=== PATIENT | female | born 1930 | race Caucasian/White ===

== ENCOUNTER 2017-10-09 10:26 | Inpatient (IN) | payer MEDICARE ==
[~2017-10-09] VITALS: Ht 165.1 cm; Wt 50.0 kg
[~2017-10-09 10:26] MED LIST: ACET325 PO; CALC600T34 PO; CELE200C PO; DOCU1CAP39 PO; LACT20SO4 PO; VITA400C28 PO
[2017-10-09 10:51] VITALS: BP 140/65; PULSE 65; RESP 18; O2SAT 99
--- NOTE | 2017-10-09 10:59 | PD ---
HPI Chief Complaint: Fall Time Seen by Provider: 10:56 (Patricia Santiago) Time Seen by Provider: 10:56 (Molina Garza MD) Travel History International Travel<30 days: No Contact w/Intl Traveler<30days: No Traveled to known affect area: No (Patricia Santiago) International Travel<30 days: No Contact w/Intl Traveler<30days: No (Molina Garza MD) History of Present Illness HPI Patient is 86 years old. Yesterday she fell landing on the left side of the body and hitting the left hip causing severe pain. The patient laid on the floor overnight and her private residence alone. Eventually her neighbors heard her in the morning and EMS was activated. Morphine 6 mg helped with the pain. She reports hyperinversion the left foot which led to the fall. There is no loss of consciousness or head trauma. Pain is now constant severe and worse active/passive range of motion. (Molina Garza MD) PFSH Past Medical History Anxiety: Yes Depression: Yes Cancer: No Cardiovascular Problems: Yes High Cholesterol: Yes Diminished Hearing: No Endocrine: No Genitourinary: Yes Musculoskeletal: Yes (OSTEOPOROSIS) Neurologic: Yes Psychiatric: Yes Reproductive: No Respiratory: No Shingles: Yes Ectopic : Yes (Patricia Santiago) Past Surgical History Appendectomy: Yes Eye Surgery: Yes (BILATERAL LENS IMPLANTS 2007) Hysterectomy: Yes Tonsillectomy: Yes Other Surgery: Yes (REPAIR OF BROKEN NOSE) (Patricia Santiago) Social History Alcohol Use: Yes (occ - wine and beer) Tobacco Use: No Substance Use: No (Patricia Santiago) Allergies-Medications (Allergen,Severity, Reaction): Coded Allergies: No Known Allergies (Verified , 01/16/15) Reported Meds & Prescriptions Reported Meds & Active Scripts Active Reported Calcium 600+D 200 (Calcium Carbonate-Vitamin D) 600-200 Mg-Unit Tab 1 Tab PO DAILY Preservision Areds 2 Softgel (Vit C/E/Zn/Coppr/Lutein/Zeaxan) 250-200-40 Capsule 1 Cap PO BID Ibuprofen 200 Mg Cap 200-400 Mg PO Q6H PRN Probiotic Daily (Probiotic Product) Unknown Strength Cap 1 Cap PO DAILY [place] Opth Drops (Ketotifen Opth Drops) 0.025% Drops 1 Drop EACH EYE Q6H PRN Aspirin Adult Low Strength (Aspirin) 81 Mg Tabdr 81 Mg PO DAILY Effexor XR 24 HR (Venlafaxine HCl) 150 Mg Cap 150 Mg PO DAILY Fluticasone Nasal [place] 50 Mcg/Act Naspr 1 [place] EACH NARE DAILY 50 mcg/spray Zocor (Simvastatin) 10 Mg Tab 10 Mg PO HS Citalopram (Citalopram Hydrobromide) 20 Mg Tab 20 Mg PO DAILY (Molina Garza MD) Review of Systems Except as stated in HPI: all other systems reviewed are Neg General / Constitutional: No: Fever (Molina Garza MD) Physical Exam Narrative GENERAL: 86-year-old female pleasant well-nourished well-developed moderate distress secondary to pain SKIN: Warm and dry. HEAD: Atraumatic. Normocephalic. EYES: Pupils equal and round. No scleral icterus. No injection or drainage. ENT: No nasal bleeding or discharge. Mucous membranes pink and moist. NECK: Trachea midline. No JVD. CARDIOVASCULAR: Regular rate and rhythm. RESPIRATORY: No accessory muscle use. Clear to auscultation. Breath sounds equal bilaterally. GASTROINTESTINAL: Abdomen soft, non-tender, nondistended. Hepatic and splenic margins not palpable. MUSCULOSKELETAL: Left lower extremity is shortened and externally rotated. There is 2+ dorsalis pedis pulse bilaterally. There is moderate tenderness to palpation overlying the left greater trochanter. The left upper extremity in the region of the DRUJ is deformed with concern for radius fracture. There is a radial artery pulse bilaterally. There is market ecchymosis from the middle portion of the humerus to the hand on the left side. Active range of motion of the left knee is preserved. NEUROLOGICAL: Awake and alert. No obvious cranial nerve deficits. Motor grossly within normal limits. Five out of 5 muscle strength in the arms and legs. Normal speech. PSYCHIATRIC: Appropriate mood and affect; insight and judgment normal. (Molina Garza MD) Data Data Last Documented VS Vital Signs Date Time Temp Pulse Resp B/P (MAP) Pulse Ox O2 Delivery O2 Flow Rate FiO2 10/09/17 13:34 111 20 166/72 (103) 100 Room Air (Molina Garza MD) Orders Orders Humerus (Min 2vws) (10/09/17 ) Electrocardiogram (10/09/17 11:05) Complete Blood Count With Diff (10/09/17 11:05) Prothrombin Time / Inr (Pt) (10/09/17 11:05) Act Partial Throm Time (Ptt) (10/09/17 11:05) Urinalysis - C+S If Indicated (10/09/17 11:05) Chest, Single Ap (10/09/17 11:05) Femur (Ap & Lat/2vws) (10/09/17 11:05) Hip, Uni(Ap&Lat) W Ap Pelvis (10/09/17 11:05) Iv Access Insert/Monitor (10/09/17 11:05) Oximetry (10/09/17 11:05) Ecg Monitoring (10/09/17 11:05) Morphine Inj (Morphine Inj) (10/09/17 11:15) Ondansetron Inj (Zofran Inj) (10/09/17 11:15) Sodium Chloride 0.9% Flush (Ns Flush) (10/09/17 11:15) Diet Npo (10/10/17 Lunch) Wrist, Complete (Pvp6nzt) (10/09/17 ) Creatine Kinase (Cpk) (10/09/17 11:05) CKMB (10/09/17 11:46) CKMB% (10/09/17 11:46) Comprehensive Metabolic Panel (10/09/17 13:39) Admit Order (Ed Use Only) (10/09/17 ) Vital Signs (Adult) Q4H (10/09/17 13:42) Activity Bed Rest (10/09/17 13:42) (Molina Graza MD) Labs Laboratory Tests Test 10/09/17 11:46 White Blood Count 14.0 TH/MM3 Red Blood Count 3.90 MIL/MM3 Hemoglobin 11.8 GM/DL Hematocrit 36.2 % Mean Corpuscular Volume 92.8 FL Mean Corpuscular Hemoglobin 30.3 PG Mean Corpuscular Hemoglobin Concent 32.6 % Red Cell Distribution Width 13.9 % Platelet Count 227 TH/MM3 Mean Platelet Volume 8.6 FL Neutrophils (%) (Auto) 85.4 % Lymphocytes (%) (Auto) 7.4 % Monocytes (%) (Auto) 7.1 % Eosinophils (%) (Auto) 0.0 % Basophils (%) (Auto) 0.1 % Neutrophils # (Auto) 11.9 TH/MM3 Lymphocytes # (Auto) 1.0 TH/MM3 Monocytes # (Auto) 1.0 TH/MM3 Eosinophils # (Auto) 0.0 TH/MM3 Basophils # (Auto) 0.0 TH/MM3 CBC Comment DIFF FINAL Differential Comment Prothrombin Time 10.8 SEC Prothromb Time International Ratio 1.1 RATIO Activated Partial Thromboplast Time 23.7 SEC Blood Urea Nitrogen 30 MG/DL Creatinine 0.85 MG/DL Random Glucose 134 MG/DL Total Protein 7.3 GM/DL Albumin 3.8 GM/DL Calcium Level 9.1 MG/DL Alkaline Phosphatase 89 U/L Aspartate Amino Transf (AST/SGOT) 65 U/L Alanine Aminotransferase (ALT/SGPT) 29 U/L Total Bilirubin 0.6 MG/DL Sodium Level 139 MEQ/L Potassium Level 4.6 MEQ/L Chloride Level 106 MEQ/L Carbon Dioxide Level 16.3 MEQ/L Anion Gap 17 MEQ/L Estimat Glomerular Filtration Rate 64 ML/MIN Total Creatine Kinase 1778 U/L Creatine Kinase MB 69.5 NG/ML Creatine Kinase MB % 3.9 % (Molina Garza MD) [facility] Medical Decision Making Medical Screen Exam Complete: Yes Emergency Medical Condition: Yes Medical Record Reviewed: Yes Differential Diagnosis Hip fracture, distal radius fracture, contusion, abrasion Narrative Course CBC & BMP Diagram 10/09/17 11:46 Total Protein 7.3, Albumin 3.8, Calcium Level 9.1, Alkaline Phosphatase 89, Aspartate Amino Transf (AST/SGOT) 65 H, Alanine Aminotransferase (ALT/SGPT) 29, Total Bilirubin 0.6 CK is 1778 Last Impressions Hip and Pelvis X-Ray 10/09/17 1105 Signed Impressions: Service Date/Time: Monday, October 09, 2017 12:39 - CONCLUSION: Displaced comminuted fracture through the trochanteric region of the proximal left femur. Juan R Arana MD Femur X-Ray 10/09/17 1105 Signed Impressions: Service Date/Time: Monday, October 09, 2017 12:39 - CONCLUSION: Left intertrochanteric femoral neck fracture. Bharat Han MD Chest X-Ray 10/09/17 1105 Signed Impressions: Service Date/Time: Monday, October 09, 2017 12:15 - CONCLUSION: 1. New impacted fracture through the neck of the proximal left humerus. 2. Stable chronic interstitial lung changes compare to 2015. No new or acute pulmonary infiltrates. Juan R Arana MD Wrist X-Ray 10/09/17 0000 Signed Impressions: Service Date/Time: Monday, October 09, 2017 12:22 - CONCLUSION: Colles' fracture of the left wrist, age undetermined. Correlate with physical and clinical exam. Juan R Arana MD Humerus X-Ray 10/09/17 0000 Signed Impressions: Service Date/Time: Monday, October 09, 2017 12:17 - CONCLUSION: Nondisplaced impacted fracture through the neck of the proximal left humerus. Juan R Arana MD Distal radius fracture reduced at bedside. Sling placed for proximal humerus fracture. Brown's traction for the left proximal humerus fracture. Discussed with Dr. Fragoso for the hospitalist service. 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 An ambu bag and suction was immediately available at bedside. The patient was monitored by the nurse. Oxygen saturation , heart rate and blood pressure were monitored. Procedural sedation was acheived using propofol . The patient was observed until awake and alert. Procedural Sedation time in attendance was 20 minutes. Traction countertraction technique employed to reduce distal radius fracture with excellent anatomic alignment. Patient with pulses at the radial artery 2+ [id number]. (Molina Garza MD) Diagnosis Primary Impression: Hip fracture Qualified Codes: S72.002A - Fracture of unspecified part of neck of left femur , initial encounter for closed fracture Additional Impressions: Fall Qualified Codes: W19.XXXA - Unspecified fall, initial encounter Contusion Qualified Codes: S40.022A - Contusion of left upper arm, initial encounter Humerus fracture Distal radius fracture Qualified Codes: S52.532A - Colles' fracture of left radius, initial encounter for closed fracture Admitting Information Admitting Physician Requests: Admit (Molina Garza MD) Patricia Santiago October 09, 2017 10:59 Molina Garza MD October 09, 2017 11:10
[2017-10-09] MEDS ORDERED: MORPHINE SULFATE 4 MG/ML INJ IV PUSH ONE (11:15)
[2017-10-09] MEDS ORDERED: SODIUM CHLORIDE 0.9% FLUSH 10 ML FLUSH IVF PRN (11:15)
[2017-10-09] MEDS ORDERED: ONDANSETRON HCL 4 MG/2 ML VIAL IVP ONE (11:15)
[2017-10-09] MEDS ORDERED: ASPI81TA16 PO (11:43)
[2017-10-09] MEDS ORDERED: EFFE150C PO (11:43)
[2017-10-09] MEDS ORDERED: FLUT50SP EACH NARE (11:43)
[2017-10-09] MEDS ORDERED: ZOCO10TA PO (11:43)
[2017-10-09] MEDS ORDERED: MULT10CA PO (11:43)
[2017-10-09] MEDS ORDERED: PROBCAP28 PO (11:43)
[2017-10-09] MEDS ORDERED: CITA20TA4 PO (11:43)
[2017-10-09] MEDS ORDERED: CALCTAB19 PO (11:43)
[2017-10-09] MEDS ORDERED: IBUP200C PO (11:43)
[2017-10-09] MEDS ORDERED: ALAW0.02 EACH EYE (11:43)
[2017-10-09 11:59] LABS: AUTOMATED NEUTROPHIL # 11.9 TH/MM3 (1.8-7.7); BASOPHIL % 0.1 % (0.0-2.0); HEMATOCRIT 36.2 % (35.0-46.0); HEMOGLOBIN 11.8 GM/DL (11.6-15.3); LYMPH % 7.4 % (9.0-44.0); MEAN CELL VOLUME 92.8 FL (80.0-100.0); MEAN CORPUSCULAR HEMOGLOBIN 30.3 PG (27.0-34.0); MEAN CORPUSCULAR HGB CONC 32.6 % (32.0-36.0); MEAN PLATELET VOLUME 8.6 FL (7.0-11.0); MONO % 7.1 % (0.0-8.0); NEUT % 85.4 % (16.0-70.0); PLATELET COUNT 227 TH/MM3 (150-450); RED CELL DISTRIBUTION WIDTH 13.9 % (11.6-17.2)
[2017-10-09 12:08] LABS: INTERNATIONAL NORMALIZED RATIO 1.1 RATIO; PROTHROMBIN TIME - PATIENT 10.8 SEC (9.8-11.6)
--- NOTE | 2017-10-09 12:55 | RADRPT ---
EXAM DATE/TIME: 10/09/2017 12:17 [facility] COMPARISON: No previous studies available for comparison. INDICATIONS : Fell last night, pain left shoulder, left wrist, left hip, unable to move due to pain MEDICAL HISTORY : unobtainable SURGICAL HISTORY : unobtainable ENCOUNTER: Initial ACUITY: 1 day PAIN SCORE: 10/10 LOCATION: Left humerus FINDINGS: There is a nondisplaced impacted fracture through the neck of the proximal left humerus. Humeral head remains aligned with the glenoid fossa. No definite joint dislocation is seen. The mid and distal sh aft of the humerus appears to be grossly intact. CONCLUSION: Nondisplaced impacted fracture through the neck of the proximal left humerus. Juan R Arana MD on October 09, 2017 at 12:53 Board Certified Radiologist. This report was verified electronically.
--- NOTE | 2017-10-09 12:57 | RADRPT ---
EXAM DATE/TIME: 10/09/2017 12:15 [facility] COMPARISON: CHEST SINGLE AP, January 16, 2015, 14:03. INDICATIONS : Pain left chest and shoulder, fell last night MEDICAL HISTORY : unobtainable SURGICAL HISTORY : unobtainable ENCOUNTER: Initial ACUITY: 1 day PAIN SCORE: 10/10 LOCATION: Bilateral chest FINDINGS: A single view of the chest demonstrates the lungs to be symmetrically aerated without evidence of mas s, infiltrate or effusion. There stable bilateral chronic interstitial lung disease without signific ant change compared to 2015. The cardiomediastinal contours are unremarkable. There is a new impacted fracture through the neck of the proximal left humerus. No joint dislocation. There is osteopenia th e bony structures. CONCLUSION: 1. New impacted fracture through the neck of the proximal left humerus. 2. Stable chronic interstitial lung changes compare to 2014. No new or acute pulmonary infiltrates. Juan R Arana MD on October 09, 2017 at 12:55 Board Certified Radiologist. This report was verified electronically.
--- NOTE | 2017-10-09 13:01 | RADRPT ---
EXAM DATE/TIME: 10/09/2017 12:22 [facility] COMPARISON: No previous studies available for comparison. INDICATIONS : Fell last night, pain left wrist MEDICAL HISTORY : unobtainable SURGICAL HISTORY : unobtainable ENCOUNTER: Initial ACUITY: 1 day PAIN SCORE: 10/10 LOCATION: Left wrist FINDINGS: There is osteopenia of the bony structures. There is deformity at the wrist with evidence of a Colles ' type fracture. However, this appears to be a possible old deformity. However I do have no prior valarie dies for comparison. There is some soft tissue swelling around the wrist. CONCLUSION: Colles' fracture of the left wrist, age undetermined. Correlate with physical and clinical exam. Juan R Arana MD on October 09, 2017 at 12:56 Board Certified Radiologist. This report was verified electronically.
--- NOTE | 2017-10-09 13:03 | RADRPT ---
EXAM DATE/TIME: 10/09/2017 12:39 [facility] COMPARISON: No previous studies available for comparison. INDICATIONS : Fell last night, pain left hip and femur MEDICAL HISTORY : unobtainable SURGICAL HISTORY : unobtainable ENCOUNTER: Initial ACUITY: 1 day PAIN SCORE: 10/10 LOCATION: Left hip FINDINGS: Examination of the left hip was performed with AP Pelvis. There is a displaced comminuted fracture th rough the trochanteric region of the proximal left femur. The femoral head remains within the acetabu lum. The bony structures of the pelvis are grossly intact. There is good alignment at the SI joints a nd pubic symphysis. CONCLUSION: Displaced comminuted fracture through the trochanteric region of the proximal left femur. Juan R Arana MD on October 09, 2017 at 13:00 Board Certified Radiologist. This report was verified electronically.
[2017-10-09 13:34] VITALS: BP 166/72; PULSE 111; RESP 20; O2SAT 100
[2017-10-09] MEDS: SODIUM CHLOR 0.9% 1000 ML INJ 1,000 ML IV SCH (13:42)
[2017-10-09] MEDS ORDERED: SODIUM CHLORIDE 0.9% FLUSH 10 ML FLUSH IV FLUSH PRN (13:45)
[2017-10-09] MEDS ORDERED: MAGNESIUM HYDROXIDE SUSP 30 ML CUP PO PRN (13:45)
[2017-10-09] MEDS ORDERED: ONDANSETRON HCL 4 MG/2 ML VIAL IVP PRN (13:45)
[2017-10-09] MEDS ORDERED: PROPOFOL 200 MG/20 ML AMP IV ONE (13:45)
[2017-10-09] MEDS ORDERED: NALOXONE HCL 0.4 MG/ML AMP IV PUSH PRN (13:45)
[2017-10-09] MEDS ORDERED: PROPOFOL 500 MG/50 ML INJ 50 ML ONE (13:45)
--- NOTE | 2017-10-09 13:46 | RADRPT ---
EXAM DATE/TIME: 10/09/2017 12:39 [facility] COMPARISON: No previous studies available for comparison. INDICATIONS : Fell last night, pain left hip and femur MEDICAL HISTORY : unobtainable SURGICAL HISTORY : unobtainable ENCOUNTER: Initial ACUITY: 1 day PAIN SCORE: 10/10 LOCATION: Left femur FINDINGS: Two view examination of the left femur demonstrates an intertrochanteric left femoral neck fracture w ith a separate fracture at the base of the lesser trochanter. The hip joint is normally aligned. The knee joint is aligned. CONCLUSION: Left intertrochanteric femoral neck fracture. Bharat Han MD on October 09, 2017 at 13:34 Board Certified Radiologist. This report was verified electronically.
--- NOTE | 2017-10-09 13:51 | HHI.HP ---
HPI Service [facility] Primary Care Physician Unknown Admission Diagnosis L Hip Fracture; L Distal Radius Fracture; Rhabdo Diagnoses: (1) Rhabdomyolysis Diagnosis: Principal (2) Fall Diagnosis: Principal (3) Hip fracture Diagnosis: Principal (4) Contusion Diagnosis: Principal Travel History International Travel<30 Days: No Contact w/Intl Traveler <30 Da: No Traveled to Known Affected Are: No History of Present Illness Mrs. Liz is an 86-year-old female. 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 After this point she had a fall and struck her left wrist and hit her left hip when she landed. She has fractures at her left radius and left femur. She was unable to have anybody come help her up and was down for some time. She is also dehydrated with rhabdomyolysis and she may have been on the floor for about 12 hours. No other complaints at this time. She did not strike her head. Review of Systems Constitutional: DENIES: Fever, Chills, Night Sweats Respiratory: DENIES: Cough, Wheezing, Shortness of breath Cardiovascular: DENIES: Chest pain, Palpitations, Syncope Musculoskeletal: COMPLAINS OF: Joint pain, Muscle aches, Stiffness, Joint Swelling Integumentary: DENIES: Abnormal pigmentation, Pruritus, Rash, Nail changes Hematologic/lymphatic: DENIES: Bruising, Lymphadenopathy Immunologic/allergic: DENIES: Eczema, Urticaria Neurologic: DENIES: Abnormal gait, Headache, Paresthesias Psychiatric: DENIES: Anxiety, Confusion, Hallucinations Except as stated in HPI: all other systems reviewed are Neg Past Family Social History Past Medical History Osteoporosis Depression Anxiety Hyperlipidemia Past Surgical History Appendectomy Bilateral lens implants Hysterectomy Tonsillectomy Repair of broken nose Reported Medications Reported Meds & Active Scripts Active Reported Calcium 600+D 200 (Calcium Carbonate-Vitamin D) 600-200 Mg-Unit Tab 1 Tab PO DAILY Preservision Areds 2 Softgel (Vit C/E/Zn/Coppr/Lutein/Zeaxan) 250-200-40 Capsule 1 Cap PO BID Ibuprofen 200 Mg Cap 200-400 Mg PO Q6H PRN Probiotic Daily (Probiotic Product) Unknown Strength Cap 1 Cap PO DAILY [place] Opth Drops (Ketotifen Opth Drops) 0.025% Drops 1 Drop EACH EYE Q6H PRN Aspirin Adult Low Strength (Aspirin) 81 Mg Tabdr 81 Mg PO DAILY Effexor XR 24 HR (Venlafaxine HCl) 150 Mg Cap 150 Mg PO DAILY Fluticasone Nasal [place] 50 Mcg/Act Naspr 1 [place] EACH NARE DAILY 50 mcg/spray Zocor (Simvastatin) 10 Mg Tab 10 Mg PO HS Citalopram (Citalopram Hydrobromide) 20 Mg Tab 20 Mg PO DAILY Allergies: Coded Allergies: No Known Allergies (Verified , 01/16/15) Family History Gallstones in siblings Social History Occasional alcohol. No smoking No illicit drug abuse Physical Exam Vital Signs Vital Signs Date Time Temp Pulse Resp B/P (MAP) Pulse Ox O2 Delivery O2 Flow Rate FiO2 10/09/17 13:34 111 20 166/72 (103) 100 Room Air 10/09/17 10:51 65 18 140/65 (90) 99 Physical Exam GENERAL: NAD, A&Ox3, thin/frail HEAD: Normocephalic. NECK: Supple, trachea midline. No lymphadenopathy. EYES: No scleral icterus. No injection or drainage. CARDIOVASCULAR: Regular rate and rhythm without murmurs, gallops, or rubs. RESPIRATORY: Breath sounds equal bilaterally. No accessory muscle use. GASTROINTESTINAL: Abdomen soft, non-tender, nondistended. MUSCULOSKELETAL: No cyanosis, or edema. Left wrist is bandaged. Decreased range of motion at left hip. SKIN: Warm and dry. NEURO: No focal neurological deficitis. Laboratory Laboratory Tests Test 10/09/17 11:46 White Blood Count 14.0 Red Blood Count 3.90 Hemoglobin 11.8 Hematocrit 36.2 Mean Corpuscular Volume 92.8 Mean Corpuscular Hemoglobin 30.3 Mean Corpuscular Hemoglobin Concent 32.6 Red Cell Distribution Width 13.9 Platelet Count 227 Mean Platelet Volume 8.6 Neutrophils (%) (Auto) 85.4 Lymphocytes (%) (Auto) 7.4 Monocytes (%) (Auto) 7.1 Eosinophils (%) (Auto) 0.0 Basophils (%) (Auto) 0.1 Neutrophils # (Auto) 11.9 Lymphocytes # (Auto) 1.0 Monocytes # (Auto) 1.0 Eosinophils # (Auto) 0.0 Basophils # (Auto) 0.0 CBC Comment DIFF FINAL Differential Comment Prothrombin Time 10.8 Prothromb Time International Ratio 1.1 Activated Partial Thromboplast Time 23.7 Total Creatine Kinase 1778 Result Diagram: 10/09/17 1146 Imaging Last Impressions Hip and Pelvis X-Ray 10/09/17 1105 Signed Impressions: Service Date/Time: Monday, October 09, 2017 12:39 - CONCLUSION: Displaced comminuted fracture through the trochanteric region of the proximal left femur. Juan R Arana MD Femur X-Ray 10/09/17 1105 Signed Impressions: Service Date/Time: Monday, October 09, 2017 12:39 - CONCLUSION: Left intertrochanteric femoral neck fracture. Bharat Han MD Chest X-Ray 10/09/17 1105 Signed Impressions: Service Date/Time: Monday, October 09, 2017 12:15 - CONCLUSION: 1. New impacted fracture through the neck of the proximal left humerus. 2. Stable chronic interstitial lung changes compare to 2015. No new or acute pulmonary infiltrates. Juan R Arana MD Wrist X-Ray 10/09/17 0000 Signed Impressions: Service Date/Time: Monday, October 09, 2017 12:22 - CONCLUSION: Colles' fracture of the left wrist, age undetermined. Correlate with physical and clinical exam. Juan R Arana MD Humerus X-Ray 10/09/17 0000 Signed Impressions: Service Date/Time: Monday, October 09, 2017 12:17 - CONCLUSION: Nondisplaced impacted fracture through the neck of the proximal left humerus. Juan R Arana MD Caprini VTE Risk Assessment Caprini VTE Risk Assessment: Mod/High Risk (score >= 2) Caprini Risk Assessment Model Point Value = 1 Point Value = 2 Point Value = 3 Point Value = 5 Age 41-60 Minor surgery BMI > 25 kg/m2 Swollen legs Varicose veins or History of unexplained or recurrent spontaneous Oral contraceptives or hormone replacement Sepsis (< 1 month) Serious lung disease, including pneumonia (< 1 month) Abnormal pulmonary function Acute myocardial infarction Congestive heart failure (< 1 month) History of inflammatory bowel disease Medical patient at bed rest Age 61-74 Arthroscopic surgery Major open surgery (> 45 min) Laparoscopic surgery (> 45 min) Malignancy Confined to bed (> 72 hours) Immobilizing plaster cast Central venous access Age >= 75 History of VTE Family history of VTE Factor V Leiden Prothrombin [id number] Lupus anticoagulant Anticardiolipin antibodies Elevated serum homocysteine Heparin-induced thrombocytopenia Other congenital or acquired thrombophilia Stroke (< 1 month) Elective arthroplasty Hip, pelvis, or leg fracture Acute spinal cord injury (< 1 month) Prophylaxis Regimen Total Risk Factor Score Risk Level Prophylaxis Regimen 0-1 Low Early ambulation 2 Moderate Order ONE of the following: *Sequential Compression Device (SCD) *Heparin 5000 units SQ BID 3-4 Higher Order ONE of the following medications: *Heparin 5000 units SQ TID *Enoxaparin/Lovenox 40 mg SQ daily (WT < 150 kg, CrCl > 30 mL/min) *Enoxaparin/Lovenox 30 mg SQ daily (WT < 150 kg, CrCl > 10-29 mL/min) *Enoxaparin/Lovenox 30 mg SQ BID (WT < 150 kg, CrCl > 30 mL/min) AND/OR *Sequential Compression Device (SCD) 5 or more Highest Order ONE of the following medications: *Heparin 5000 units SQ TID (Preferred with Epidurals) *Enoxaparin/Lovenox 40 mg SQ daily (WT < 150 kg, CrCl > 30 mL/min) *Enoxaparin/Lovenox 30 mg SQ daily (WT < 150 kg, CrCl > 10-29 mL/min) *Enoxaparin/Lovenox 30 mg SQ BID (WT < 150 kg, CrCl > 30 mL/min) AND *Sequential Compression Device (SCD) Assessment and Plan Problem List: (1) Fall ICD Code: W19.XXXA - Unspecified fall, initial encounter Status: Acute (2) Hip fracture ICD Code: S72.009A - Fracture of unspecified part of neck of unspecified femur , initial encounter for closed fracture Status: Acute (3) Contusion ICD Code: T14.8XXA - Other injury of unspecified body region, initial encounter Status: Acute (4) Rhabdomyolysis ICD Code: M62.82 - Rhabdomyolysis Assessment and Plan 86-year-old female admitted secondary to left femur and left radius fractures Left femur fracture Left radius fracture Chronic osteoporosis Orthopedic surgeon was consulted Bedrest for now N.p.o. after midnight Continue as needed pain treatments IV hydration Rhabdomyolysis Monitor renal function IV hydration Follow CK (renal function studies pending) Hyperlipidemia Continue present treatment Follow as an outpatient Depression Anxiety No change to baseline treatment DVT prophylaxis SCDs for now (renal function studies pending), consider anticoagulation after surgery Physician Certification 2 Midnight Certification Type: Admission for Inpatient Services Order for Inpatient Services The services are ordered in accordance with Medicare regulations or non- Medicare payer requirements, as applicable. In the case of services not specified as inpatient-only, they are appropriately provided as inpatient services in accordance with the 2-midnight benchmark. Estimated LOS (days): 4 days is the estimated time the patient will need to remain in the hospital, assuming treatment plan goals are met and no additional complications. Post-Hospital Plan: Home Problem Qualifiers (1) Fall: Qualified Codes: W19.XXXA - Unspecified fall, initial encounter (2) Hip fracture: Qualified Codes: S72.002A - Fracture of unspecified part of neck of left femur , initial encounter for closed fracture (3) Contusion: Qualified Codes: S40.022A - Contusion of left upper arm, initial encounter Molina Fragoso MD October 09, 2017 13:51
[2017-10-09 14:00] VITALS: O2SAT 99
[2017-10-09 14:22] VITALS: O2SAT 99
--- NOTE | 2017-10-09 14:55 | RADRPT ---
EXAM DATE/TIME: 10/09/2017 13:58 [facility] COMPARISON: No previous studies available for comparison. INDICATIONS : Post reduction. MEDICAL HISTORY : Unobtainable. SURGICAL HISTORY : Unobtainable. ENCOUNTER: Initial ACUITY: 1 day PAIN SCORE: 2/10 LOCATION: Left wrist. FINDINGS: Near anatomic alignment in fiberglass about the fractured distal radius. CONCLUSION: Near-anatomic alignment. Carlin Crain MD FACR on October 09, 2017 at 14:53 Board Certified Radiologist. This report was verified electronically.
[2017-10-09 15:15] LABS: ALT (GPT) 29 U/L (10-53)
[2017-10-09 15:18] LABS: ALKALINE PHOSPHATASE 89 U/L (45-117); TOTAL BILIRUBIN ADULT 0.6 MG/DL (0.2-1.0); TOTAL PROTEIN 7.3 GM/DL (6.4-8.2)
[2017-10-09 15:19] LABS: ALBUMIN 3.8 GM/DL (3.4-5.0); AST (GOT) 65 U/L (15-37); BICARBONATE 16.3 MEQ/L (21.0-32.0); BLOOD UREA NITROGEN 30 MG/DL (7-18); CALCIUM 9.1 MG/DL (8.5-10.1); CHLORIDE 106 MEQ/L (98-107); CREATININE 0.85 MG/DL (0.50-1.00); GLOMERULAR FILTRATION RATE 64 ML/MIN (>89); GLUCOSE,RANDOM 134 MG/DL (74-106); SODIUM (NA) 139 MEQ/L (136-145)
[2017-10-09] MEDS ORDERED: KETOTIFEN EACH EYE PRN (16:45)
[2017-10-09 17:31] LABS: BACTERIA, URINE RARE /hpf; BILIRUBIN, URINE NEG (NEG); BLOOD, URINE NEG (NEG); GLUCOSE,URINE NEG (NEG); HYALINE CAST, URINE 2 /lpf (RARE); KETONE, URINE 40 mg/dL (NEG); MUCUS URINE FEW /lpf (OCC); NITRITE,URINE NEG (NEG); PH, URINE 5.5 (5.0-8.5); SQUAMOUS EPITHELIAL CELL URINE <1 /hpf (0-5); URIC ACID CRYSTALS, URINE RARE /hpf; URINE COLOR YELLOW (YELLW/STRAW); URINE LEUKOCYTE ESTERASE NEG (NEG)
[2017-10-09 17:40] VITALS: BP 147/67; PULSE 97; RESP 18; TEMP 97.2; O2SAT 95
[2017-10-09 21:15] VITALS: BP 126/58; PULSE 94; RESP 17; TEMP 98.4; O2SAT 94
[2017-10-09] MEDS: ACETAMINOPHEN/HYDROcodone 325 MG/10 MG TAB PO PRN (21:59)
[2017-10-09] MEDS: PRAVASTATIN SOD 20 MG TAB PO SCH (21:59)
[2017-10-09] MEDS: SODIUM CHLORIDE 0.9% FLUSH 10 ML FLUSH IV FLUSH SCH (22:00)
[2017-10-09] MEDS: DOCUSATE SODIUM 50 MG/SENNA 8.6 MG TAB PO SCH (22:00)
[2017-10-09] MEDS ORDERED: LACTATED RINGER'S 1000 ML IV PRN (22:30)
[2017-10-09] MEDS ORDERED: CHLORHEXIDINE GLUCONATE 2 % 1 PACK (2 CLOTHS) TOPICAL PRN (22:30)
[2017-10-09] MEDS ORDERED: INSULIN HUMAN REGULAR 1,000 UNITS/10 ML VIAL SQ PRN (22:30)
[2017-10-09] MEDS ORDERED: SODIUM CHLORID 0.9% 500 ML IV PRN (22:30)
[2017-10-09] MEDS ORDERED: METOPROLOL TARTRATE 25 MG TAB PO PRN (22:30)
[2017-10-09] MEDS ORDERED: POVIDONE IODINE 5% (ANTISEPSIS KIT) 4 APPLICATIONS EACH NARE PRN (22:30)
[2017-10-10] VITALS (8 sets, daily range): BP systolic 117–135; BP diastolic 52–63; PULSE 82–107; RESP 17–18; TEMP 97.2–98.7; O2SAT 93–100
--- NOTE | 2017-10-10 06:52 | PD.ORT.PN ---
Subjective Subjective Remarks s/p fall at home left proximal humerus fx left wrist fx left hip fx states pain in left hip Objective Vitals Vital Signs Date Time Temp Pulse Resp B/P (MAP) Pulse Ox O2 Delivery O2 Flow Rate FiO2 10/10/17 03:54 98.1 88 17 131/56 (81) 93 10/10/17 00:34 98.7 97 17 125/58 (80) 93 10/09/17 21:15 98.4 94 17 126/58 (80) 94 10/09/17 17:40 97.2 97 18 147/67 (93) 95 10/09/17 14:22 99 Nasal Cannula 2.00 10/09/17 14:22 99 2.00 10/09/17 14:00 99 10/09/17 13:34 111 20 166/72 (103) 100 Room Air 10/09/17 10:51 65 18 140/65 (90) 99 I/O 10/09/17 10/09/17 10/09/17 10/10/17 10/10/17 10/10/17 07:00 15:00 23:00 07:00 15:00 23:00 Intake Total 0 ml Output Total 450 ml Balance -450 ml Intake Oral 0 ml Output Urine Total 450 ml # Bowel Movements 0 Result Diagram: 10/09/17 1146 10/09/17 1146 Other Results Laboratory Tests Test 10/09/17 11:46 Prothromb Time International Ratio 1.1 RATIO Prothrombin Time 10.8 SEC (9.8-11.6) Imaging Last 24 hours Impressions Hip and Pelvis X-Ray 10/09/17 1105 Signed Impressions: Service Date/Time: Monday, October 09, 2017 12:39 - CONCLUSION: Displaced comminuted fracture through the trochanteric region of the proximal left femur. Juan R Arana MD Femur X-Ray 10/09/17 1105 Signed Impressions: Service Date/Time: Monday, October 09, 2017 12:39 - CONCLUSION: Left intertrochanteric femoral neck fracture. Bharat Han MD Chest X-Ray 10/09/17 1105 Signed Impressions: Service Date/Time: Monday, October 09, 2017 12:15 - CONCLUSION: 1. New impacted fracture through the neck of the proximal left humerus. 2. Stable chronic interstitial lung changes compare to 2015. No new or acute pulmonary infiltrates. Juan R Arana MD Objective Remarks LUE: +sling and swathe. +short arm splint. intact. NVI LLE: +bucks traction. NVI Assessment & Plan Assessment and Plan 1) Left Intertroch Hip Fx -npo -consents -surgery today with Castillo 2) Left Proximal Humerus Fx - nonop 3) Left Distal Radius Fx - nonop -maintain sling and short arm splint at all times -NWB -as long as maintains alignment, plan for nonop treatment of shoulder and wrist Cristiano Grady/Conveyor Belt Operator BELME October 10, 2017 06:52
[2017-10-10] MEDS ORDERED: XARE10TA PO (07:00)
[2017-10-10] MEDS ORDERED: HYDR-3580 PO (07:00)
[2017-10-10] MEDS ORDERED: VITA2000 PO (07:00)
[2017-10-10] MEDS ORDERED: VITA500012 PO (07:00)
[2017-10-10] MEDS ORDERED: CALCTAB19 PO (07:00)
[2017-10-10 07:10] LABS: AUTOMATED NEUTROPHIL # 8.2 TH/MM3 (1.8-7.7); BASOPHIL # 0.1 TH/MM3 (0-0.2); BASOPHIL % 0.4 % (0.0-2.0); EOSINOPHIL % 0.1 % (0.0-4.0); HEMATOCRIT 26.5 % (35.0-46.0); LYMPH % 15.3 % (9.0-44.0); LYMPHOCYTE # 1.7 TH/MM3 (1.0-4.8); MEAN CELL VOLUME 92.2 FL (80.0-100.0); MEAN CORPUSCULAR HEMOGLOBIN 31.4 PG (27.0-34.0); MEAN PLATELET VOLUME 8.2 FL (7.0-11.0); MONO % 10.8 % (0.0-8.0); MONOCYTE # 1.2 TH/MM3 (0-0.9); NEUT % 73.4 % (16.0-70.0); PLATELET COUNT 173 TH/MM3 (150-450); RED BLOOD COUNT 2.87 MIL/MM3 (4.00-5.30); RED CELL DISTRIBUTION WIDTH 13.4 % (11.6-17.2); WHITE BLOOD COUNT 11.2 TH/MM3 (4.0-11.0)
--- NOTE | 2017-10-10 07:31 | MB ---
cc: Lorenzo Chong MD DATE: 10/10/2017 CONSULTING PHYSICIAN: Dr. Molina Fragoso. HISTORY OF PRESENT ILLNESS: Marry is an 86-year-old female who tripped and fell. She describes a mechanical fall. She states that her shoes did not fit her that well, which led her to trip and fall. She landed on her left side. She had left wrist pain, left shoulder pain and left hip pain. She presented to the Emergency Room where x-rays revealed a left proximal humerus fracture, left distal radius fracture, and a left proximal femur fracture. She states she was on the floor for approximately 12 hours. She did not hit her head. She had no dizziness, syncope or loss of consciousness. Pain is worse with movement and is improved with rest. PAST MEDICAL HISTORY: Osteoporosis, depression, anxiety, and high cholesterol. PAST SURGICAL HISTORY: Appendectomy, bilateral lens implants, hysterectomy, and tonsillectomy. MEDICATIONS: 1. Calcium. 2. Ibuprofen. 3. Probiotic. 4. Alaway. 5. Aspirin. 6. Effexor 7. Fluticasone. 8. Zocor. 9. Citalopram. ALLERGIES: NO KNOWN DRUG ALLERGIES. FAMILY HISTORY: Noncontributory. She states that her siblings have had gallstones. SOCIAL HISTORY: The patient denies tobacco or drug use. She drinks alcohol occasionally. REVIEW OF SYSTEMS: The patient denies headache, visual changes, neck pain, chest pain, shortness of breath, abdominal pain, nausea, vomiting, recent weight loss, fever, chills, numbness or tingling of the extremities or bowel or bladder incontinence. She complains of left shoulder pain, left wrist pain and left hip pain. LABORATORY DATA: The patient has a white blood cell count of 14.0, hematocrit of 36.2, and platelet count of 227. INR is 1.1. BUN is 30 and creatinine 0.85. IMAGING STUDIES: X-rays of the left shoulder were reviewed. X-rays reveal a minimally displaced left proximal humerus fracture. X-rays of the left wrist were reviewed. X-rays reveal a relatively well-aligned distal radius fracture. Articular surfaces in appropriate position. X-rays of the left hip are reviewed. X-rays reveal a displaced left proximal femur intertrochanteric fracture. PHYSICAL EXAMINATION: GENERAL: A thin 86-year-old female. She appears somewhat frail. She is awake and alert. She is in no acute distress. VITAL SIGNS: Temperature 98.1, pulse 88, respirations 17, blood pressure 131/56, O2 saturation 93% on room air. HEENT: Head: The patient is normocephalic. Pupils are equal. NECK: Soft and nontender. The trachea is in the midline. ABDOMEN: Soft, nontender, and nondistended. EXTREMITIES: Examination of the right arm reveals no pain with shoulder, elbow or wrist motion. Skin is intact. Radial pulse is palpable. Sensation is intact in all fingers. Examination of the right leg reveals no pain with hip, knee or ankle motion. Skin is intact. Dorsalis pedis pulse is palpable. Sensation is intact. Examination of the left arm reveals tenderness around her proximal humerus. She also has tenderness over her wrist. She has intact sensation in all fingers. She has good cap refill in her fingers. She has pain with any shoulder motion. Examination of the left leg reveals left leg is shortened and externally rotated. She is tender to palpation over the proximal femur and hip. She has pain with any hip motion. She has no tenderness around her knee, tibia or ankle. Skin is intact. Dorsalis pedis pulse is palpable. Sensation is intact to the left foot. IMPRESSION: 1. Osteoporosis. 2. Anxiety. 3. Left proximal humerus fracture. 4. Left distal radius fracture. 5. Left hip intertrochanteric fracture. PLAN: Treatment options were discussed with the patient. At this point, I would recommend surgery for a left hip reduction and internal fixation. The left shoulder and left wrist fractures are relatively well aligned. I would recommend nonoperative treatment at this time. If these fractures displace, she could need surgical intervention in the future for these injuries. Risks of surgery including bleeding, infection; injuries to arteries, nerves or blood vessels; nonunion, malunion, and painful hardware as well as medical complications including blood clot, stroke, heart attack, and were discussed. All questions were answered. I will plan on surgery today. I will also check the patient's vitamin D level. I will place her on calcium and vitamin D. I will also start her on DVT prophylaxis postoperatively. A mid-level provider in my office, nurse practitioner or PA, may see this patient on a follow-up basis and continue to implement the objective of this plan including: Starting or adjusting medications, injections of muscle, tendon, bursa or joints, cast application, orthotic or brace application, physical therapy, further radiographic studies including x-ray, MRI, CT, ultrasounds or bone scan, vascular studies, neurologic studies, or other specialist consultations, and proceeding with surgical management as appropriate. Lorenzo MD CHICHI Keyes/ALESSOI , 07:11 AM , 07:30 AM
[2017-10-10 07:43] LABS: ALBUMIN 2.9 GM/DL (3.4-5.0); ALT (GPT) 28 U/L (10-53); AST (GOT) 62 U/L (15-37); BICARBONATE 25.9 MEQ/L (21.0-32.0); BLOOD UREA NITROGEN 27 MG/DL (7-18); CALCIUM 8.3 MG/DL (8.5-10.1); CHLORIDE 107 MEQ/L (98-107); CREATININE 0.47 MG/DL (0.50-1.00); GLOMERULAR FILTRATION RATE 126 ML/MIN (>89); GLUCOSE,RANDOM 93 MG/DL (74-106); SODIUM (NA) 140 MEQ/L (136-145)
[2017-10-10 08:07] LABS: ALKALINE PHOSPHATASE 66 U/L (45-117); TOTAL BILIRUBIN ADULT 0.5 MG/DL (0.2-1.0); TOTAL PROTEIN 5.6 GM/DL (6.4-8.2)
[2017-10-10] MEDS: DOCUSATE SODIUM 50 MG/SENNA 8.6 MG TAB PO SCH ×2 (08:50→19:57)
[2017-10-10] MEDS: VENLAFAXINE HCL XR 75 MG CAP PO SCH (08:50)
[2017-10-10] MEDS: CITALOPRAM HYDROBROMIDE 20 MG TAB PO SCH (08:50)
[2017-10-10] MEDS: FLUTICASONE PROPIONATE 50 MCG/ACT 16 GM NASAL SPRAY EACH NARE SCH (08:50)
[2017-10-10] MEDS: CALCIUM/VITAMIN D 250 MG/125 U TAB PO SCH ×2 (08:50→18:07)
[2017-10-10] MEDS: SODIUM CHLORIDE 0.9% FLUSH 10 ML FLUSH IV FLUSH SCH ×2 (08:55→19:57)
--- NOTE | 2017-10-10 09:34 | HHI.PR ---
Subjective Remarks Follow-up for fall with left femur fracture, left humeral fracture, and left radius fracture. Patient reports her left hip is starting to hurt more today. Patient states Monday night around 7 PM she tripped on the back of her shoe and fell to the floor in her kitchen. She states she was unable to get up therefore she laid on the floor until her friend came around 9 AM Monday morning to pick her up for a hair appointment. Patient lives alone. She agrees to rehab placement if this is recommended. She denies any other medical complaints including no recent fever/chills, cough, congestion, chest pain, palpitations, shortness of breath, abdominal pain, or urinary complaints. Objective Vitals Vital Signs Date Time Temp Pulse Resp B/P (MAP) Pulse Ox O2 Delivery O2 Flow Rate FiO2 10/10/17 08:40 98.0 84 18 117/52 (73) 100 10/10/17 03:54 98.1 88 17 131/56 (81) 93 10/10/17 00:34 98.7 97 17 125/58 (80) 93 10/09/17 21:15 98.4 94 17 126/58 (80) 94 10/09/17 17:40 97.2 97 18 147/67 (93) 95 10/09/17 14:22 99 Nasal Cannula 2.00 10/09/17 14:22 99 2.00 10/09/17 14:00 99 10/09/17 13:34 111 20 166/72 (103) 100 Room Air 10/09/17 10:51 65 18 140/65 (90) 99 I/O 10/09/17 10/09/17 10/09/17 10/10/17 10/10/17 10/10/17 07:00 15:00 23:00 07:00 15:00 23:00 Intake Total 0 ml Output Total 450 ml Balance -450 ml Intake Oral 0 ml Output Urine Total 450 ml # Bowel Movements 0 Result Diagram: 10/10/17 0650 10/10/17 0650 Imaging Last Impressions Hip and Pelvis X-Ray 10/09/17 1105 Signed Impressions: Service Date/Time: Monday, October 09, 2017 12:39 - CONCLUSION: Displaced comminuted fracture through the trochanteric region of the proximal left femur. Juan R Arana MD Femur X-Ray 10/09/17 1105 Signed Impressions: Service Date/Time: Monday, October 09, 2017 12:39 - CONCLUSION: Left intertrochanteric femoral neck fracture. Bharat Han MD Chest X-Ray 10/09/17 1105 Signed Impressions: Service Date/Time: Monday, October 09, 2017 12:15 - CONCLUSION: 1. New impacted fracture through the neck of the proximal left humerus. 2. Stable chronic interstitial lung changes compare to 2015. No new or acute pulmonary infiltrates. Juan R Arana MD Wrist X-Ray 10/09/17 0000 Signed Impressions: Service Date/Time: Monday, October 09, 2017 13:58 - CONCLUSION: Near-anatomic alignment. Carlin Crain MD FACR Humerus X-Ray 10/09/17 0000 Signed Impressions: Service Date/Time: Monday, October 09, 2017 12:17 - CONCLUSION: Nondisplaced impacted fracture through the neck of the proximal left humerus. Juan R Arana MD Objective Remarks GENERAL: Well-nourished, well-developed pleasant elderly female patient in [facility]. SKIN: Warm and dry. No rash. HEENT: Normocephalic. Atraumatic. Pupils equal and round. Mucous membranes pink and moist. CARDIOVASCULAR: Regular rate and rhythm. No murmur appreciated. RESPIRATORY: No accessory muscle use. Clear to auscultation. Breath sounds equal bilaterally. GASTROINTESTINAL: Abdomen soft, non-tender, nondistended. Normoactive bowel sounds x4. MUSCULOSKELETAL: Left arm in splint/sling. Left leg splint in place. 2+ bilateral radial and pedal pulses. Extremities without clubbing, cyanosis, or edema. NEUROLOGICAL: Awake and alert. No obvious cranial nerve deficits. Motor grossly within normal limits. Moving all extremities spontaneously. Normal speech. PSYCHIATRIC: Appropriate mood and affect; insight and judgment normal. Medications and IVs Current Medications Medications (Trade) Dose Ordered Sig/Zena Route Start Time Stop Time Status Last Admin Sodium Chloride 1,000 ml @ 100 mls/hr Q10H IV 10/09/17 13:42 10/10/17 11:15 (NS Flush) 2 ml UNSCH PRN IV FLUSH 10/09/17 13:45 (NS Flush) 2 ml BID IV FLUSH 10/09/17 21:00 10/09/17 22:00 (Zofran Inj) 4 mg Q6H PRN IVP 10/09/17 13:45 (Avon 5-325 Mg) 1 tab Q4H PRN PO 10/09/17 13:45 (Avon 10-325 Mg) 1 tab Q4H PRN PO 10/09/17 13:45 10/09/17 21:59 (Narcan Inj) 0.4 mg UNSCH PRN IV PUSH 10/09/17 13:45 (Sarika-Colace) 1 tab BID PO 10/09/17 21:00 10/10/17 08:50 (Milk Of Magnesia Liq) 30 ml Q12H PRN PO 10/09/17 13:45 (CeleXA) 20 mg DAILY PO 10/10/17 09:00 10/10/17 08:50 (Flonase Chuck Spr) 1 spray DAILY EACH NARE 10/10/17 09:00 10/10/17 08:50 (Effexor Xr) 150 mg DAILY PO 10/10/17 09:00 10/10/17 08:50 (Oscal-D 250-125) 500 mg DAILY PO 10/10/17 09:00 10/10/17 08:50 Patient Own Medication PT OWN MED: ALA... Q6H PRN EACH EYE 10/09/17 16:45 Future Hold (Pravachol) 20 mg HS PO 10/09/17 21:00 10/09/17 21:59 Lactated Ringer's 1,000 ml @ 30 mls/hr Q24H PRN IV 10/09/17 22:30 10/12/17 22:29 Sodium Chloride 500 ml @ 30 mls/hr [id number] PRN IV 10/09/17 22:30 10/12/17 22:29 (Lopressor) 25 mg HOME [employer]ES MECH[employer]IC PRN PO 10/09/17 22:30 10/12/17 22:29 (Betadine 5% Antisepsis Kit) 1 applic HOME [employer]PLIANCES MECHANIC PRN EACH NARE 10/09/17 22:30 10/12/17 22:29 (Chlorhexidine 2% Cloth) 3 pack HOME [employer]CH[employer]IC PRN TOPICAL 10/09/17 22:30 10/12/17 22:29 (NovoLIN R INJ) See Protocol Table ... HOME [employer]PLI[employer]ES MECH[employer]IC PRN SQ 10/09/17 22:30 10/12/17 22:29 (Lovenox Inj) 30 mg Q24H SQ 10/10/17 13:30 UNV Cefazolin Sodium 1000 mg/Sodium Chloride 100 ml @ 200 mls/hr Q8H IV 10/10/17 13:30 10/11/17 05:59 UNV (Oscal-D 250-125) 250 mg TID PO 10/10/17 18:00 UNV (Benadryl) 25 mg Q6H PRN PO 10/10/17 13:30 UNV (Morphine Inj) 3 mg Q3H PRN IV PUSH 10/10/17 13:30 UNV (Vitamin D3) 5,000 units DAILY PO 10/11/17 09:00 UNV (Drisdol) 50,000 units ONCE ONCE PO 10/10/17 13:30 10/10/17 13:31 UNV A/P Problem List: (1) Fall ICD Code: W19.XXXA - Unspecified fall, initial encounter Status: Acute (2) Hip fracture ICD Code: S72.009A - Fracture of unspecified part of neck of unspecified femur , initial encounter for closed fracture Status: Acute (3) Contusion ICD Code: T14.8XXA - Other injury of unspecified body region, initial encounter Status: Acute (4) Rhabdomyolysis ICD Code: M62.82 - Rhabdomyolysis Assessment and Plan 86-year-old female with history of osteoporosis, hyperlipidemia, anxiety, depression, presents after a mechanical trip and fall at home. Left femur fracture: Secondary to fall -Left hip/femur/pelvis x-ray reviewed, shows displaced comminuted fracture through the trochanteric region of the proximal left femur -Pain control with Avon prn, IV morphine prn breakthrough pain -Check Vitamin D level -Consulted ortho, plan for surgery today -DVT prophylaxis with Lovenox sq for now, with Xarelto 10mg daily [id number] upon discharge -Will need PT eval and likely placement, patient lives alone Left Humerus Fracture, Left Radial Fracture: secondary to fall -Left wrist xray reviewed, shows Colles' fracture left wrist -Left humerus xray reviewed, shows nondisplaced impacted fracture through the neck of the proximal left humerus -Ortho consulted, recommended nonoperative management at this time -Continue splint/sling -Pain control as above Rhabdomyolysis: secondary to fall, patient on ground [id number] -CPK elevated at 1778, continue to trend -Give IVF hydration -Monitor renal function, improved with Cr 0.85 --> 0.47 -UA unremarkable, culture pending Hyperlipidemia: Chronic, stable -continue patient's statin Anxiety/depression: Chronic -Continue patient's citalopram and Effexor DVT prophylaxis: Lovenox sq Discharge Planning Discussed with RN, case management. Patient likely needs rehab placement. Problem Qualifiers (1) Fall: Qualified Codes: W19.XXXA - Unspecified fall, initial encounter (2) Hip fracture: Qualified Codes: S72.002A - Fracture of unspecified part of neck of left femur , initial encounter for closed fracture (3) Contusion: Qualified Codes: S40.022A - Contusion of left upper arm, initial encounter Jeniffer Moore PA-C October 10, 2017 9:34 am
[2017-10-10] MEDS: SODIUM CHLOR 0.9% 1000 ML INJ 1,000 ML IV SCH ×4 (11:11→19:57)
[2017-10-10] MEDS ORDERED: SODIUM CHLOR 0.9% 250 ML INJ 250 ML ONE (11:30)
[2017-10-10] MEDS ORDERED: VANCOMYCIN HCL 1000 MG VIAL ONE (11:30)
[2017-10-10] MEDS ORDERED: GENTAMICIN SULFATE 80 MG/2 ML VIAL ONE ×2 (11:30→16:48)
[2017-10-10] MEDS ORDERED: DEXAMETHASONE SOD PHOS 4 MG/ML VIAL IV ONE (12:00)
[2017-10-10] MEDS ORDERED: PROPOFOL 200 MG/20 ML AMP IV ONE (12:00)
[2017-10-10] MEDS ORDERED: ONDANSETRON HCL 4 MG/2 ML VIAL IV PUSH ONE (12:00)
[2017-10-10] MEDS ORDERED: ACETAMINOPHEN 1000 MG/100 ML 100 ML IV ONE ×2 (12:19→14:44)
[2017-10-10] MEDS ORDERED: BUPIVACAINE/EPINEPHRINE 0.5% PF 10 ML VIAL ONE (12:29)
--- NOTE | 2017-10-10 13:20 | PD.OP ---
cc: Lorenzo Lopez MD Operative Report Date of Surgery: October 10, 2017 Preoperative Diagnosis: Displaced left hip intertrochanteric fracture, minimally displaced left distal radius fracture, minimally displaced left proximal humerus fracture Postoperative Diagnosis: Procedure: Reduction and intramedullary nail fixation left proximal femur Anesthesia: General Surgeon: Lorenzo Lopez Bottle Cleaner(s): GENNA Segura PA-C The surgical procedure was assisted by my physician assistant education director. My P.A. presence was necessary throughout this case for the manipulation and positioning of the surgical extremity. My P.A. was assisting me throughout the duration of this procedure. The skill set of a physician assistant education director was medically necessary to complete this procedure. During the surgical case the surgical technician was working at the back table and the physician assistant education director was directly assisting me. Operation and Findings: Implants used: Synthes 12 mm x [360]mm troch nail Plan of activity: Weight-bear as tolerated left leg, nonweightbearing left arm Patient was seen and evaluated preoperatively. The patient has significant hip pain from proximal femur fracture. The risk and benefits of surgery were discussed in depth with the patient to include bleeding, infection, nonunion, malunion, need for hip replacement, painful hardware, as well as medical competitions including blood clots, stroke, heart attack, and . Informed consent was obtained. Operative site was marked. Patient was brought to the operating room and placed on fracture table. IV sedation was administered by anesthesiologist. Timeout procedure was performed. Hip and leg were prepped with alcohol followed by DuraPrep and draped in the usual sterile fashion. IV antibiotics were given prior to incision. Procedure began with reduction of fracture. Traction was applied. The leg was manipulated to achieve reduction. Excellent reduction was achieved. Fluoroscopy was used to confirm reduction. A three inch incision was made proximal to the trochanter. Subcutaneous tissue was dissected bluntly. Guidepin was placed at the tip of the trochanter and advanced into the femoral canal. Fluoroscopy confirmed appropriate guidepin placement. A opening reamer was placed over the guidepin. A long ball tipped guide pin was now placed down the femoral canal into the center of the distal femur. The nail length was now measured. Fluoroscopy confirmed appropriate guidepin placement. Flexible reamers were now passed over the guidepin to ream the intramedullary canal. The nail was attached to the insertion handle. Nail was now placed over the guidepin into the femoral canal. Fluoroscopy confirmed appropriate nail placement. A second incision was made over the lateral thigh. Cannulas were placed through the insertion handle down to the femur. Guidepin was now placed through the femoral nail into the center of the femoral head. Fluoroscopy confirmed appropriate guidepin placement. Screw length was measured. Cannulated drill was placed over the guidepin. Appropriate length lag screw was now placed. Traction was released and compression was applied. The set screw was now tightened in dynamic mode. Next, using perfect ambler technique two distal interlocking screws were placed. Screw holes were predrilled and screw lengths were measured. Final fluoroscopy revealed well aligned fracture with well-placed hardware. Incision was closed with 3-0 Vicryl and eliud. Sterile dressings were applied. Patient was awakened and transferred to recovery room. Lorenzo Lopez MD October 10, 2017 13:19
[2017-10-10] MEDS ORDERED: ERGOCALCIFEROL (VIT D2) 50,000 UNIT CAP PO ONE (13:30)
[2017-10-10] MEDS ORDERED: diphenhydrAMINE HCL 25 MG CAP PO PRN (13:30)
[2017-10-10] MEDS ORDERED: DO NOT ADM ANY ANTICOAGULANT DRUGS PRN (13:30)
[2017-10-10] MEDS ORDERED: MORPHINE SULFATE 4 MG/ML INJ IV PUSH PRN (13:30)
--- NOTE | 2017-10-10 14:41 | EKG ---
Date Performed: 10/09/2017 Time Performed: 10:53:27 PTAGE: 86 years EKG: Sinus rhythm RIGHT BUNDLE BRANCH BLOCK LEFT ANTERIOR FASCICULAR BLOCK VOLTAGE CRITERIA FOR LVH PROBABLE ANTERIOR MYOCARDIAL INFARCTION ABNORMAL ECG PREVIOUS TRACING : 08/20/2007 11.25 DOCTOR: Piotr De La Fuente Interpretating Date/Time 10/10/2017 14:40:16
--- NOTE | 2017-10-10 15:33 | RADRPT ---
EXAM DATE/TIME: 10/10/2017 13:09 [facility] COMPARISON: FEMUR LEFT (AP & LAT/2VWS), October 09, 2017, 12:39. INDICATIONS : ORIF left femur fracture. MEDICAL HISTORY : Unobtainable. SURGICAL HISTORY : Unobtainable. ENCOUNTER: Subsequent ACUITY: 2 days PAIN SCORE: Non-responsive. LOCATION: Left femur. FINDINGS: 4 fluoroscopic images demonstrate interval intramedullary pin and compression screw fixation of the l eft femoral intertrochanteric fracture. There is near-anatomic alignment of the fracture fragments an d hardware appears well-positioned. CONCLUSION: 1. Left femoral ORIF, as above. Gt Ariza MD on October 10, 2017 at 15:30 Board Certified Radiologist. This report was verified electronically.
[2017-10-10] MEDS: ACETAMINOPHEN/HYDROcodone 325 MG/10 MG TAB PO PRN (15:56)
[2017-10-10] MEDS: ENOXAPARIN SODIUM 30 MG/0.3 ML SYRINGE SQ SCH (16:23)
[2017-10-10] MEDS ORDERED: ceFAZolin 2 GM PREMIX 0 ML ONE (16:48)
[2017-10-10] MEDS: PRAVASTATIN SOD 20 MG TAB PO SCH (19:57)
[2017-10-10] MEDS: ACETAMINOPHEN/HYDROcodone 325 MG/5 MG TAB PO PRN (23:43)
[2017-10-11] VITALS (7 sets, daily range): BP systolic 122–150; BP diastolic 51–77; PULSE 83–98; RESP 17–18; TEMP 97–97.8; O2SAT 93–99
[2017-10-11] MEDS: ACETAMINOPHEN/HYDROcodone 325 MG/5 MG TAB PO PRN ×2 (05:00→20:19)
[2017-10-11] MEDS: SODIUM CHLOR 0.9% 1000 ML INJ 1,000 ML IV SCH (06:37)
[2017-10-11 08:02] LABS: AUTOMATED NEUTROPHIL # 7.2 TH/MM3 (1.8-7.7); BASOPHIL % 0.1 % (0.0-2.0); HEMATOCRIT 21.4 % (35.0-46.0); HEMOGLOBIN 7.2 GM/DL (11.6-15.3); LYMPH % 12.2 % (9.0-44.0); LYMPHOCYTE # 1.2 TH/MM3 (1.0-4.8); MEAN CELL VOLUME 93.2 FL (80.0-100.0); MEAN CORPUSCULAR HEMOGLOBIN 31.2 PG (27.0-34.0); MEAN CORPUSCULAR HGB CONC 33.5 % (32.0-36.0); MEAN PLATELET VOLUME 8.8 FL (7.0-11.0); MONO % 12.7 % (0.0-8.0); MONOCYTE # 1.2 TH/MM3 (0-0.9); PLATELET COUNT 144 TH/MM3 (150-450); RED BLOOD COUNT 2.29 MIL/MM3 (4.00-5.30); RED CELL DISTRIBUTION WIDTH 13.4 % (11.6-17.2); WHITE BLOOD COUNT 9.7 TH/MM3 (4.0-11.0)
[2017-10-11 08:27] LABS: BICARBONATE 28.4 MEQ/L (21.0-32.0); CALCIUM 7.7 MG/DL (8.5-10.1); CREATININE 0.42 MG/DL (0.50-1.00)
[2017-10-11] MEDS: CALCIUM/VITAMIN D 250 MG/125 U TAB PO SCH ×4 (09:00→18:00)
[2017-10-11] MEDS: CHOLECALCIFEROL (VIT D3) 5000 UNIT CAP PO SCH (09:28)
[2017-10-11] MEDS: CITALOPRAM HYDROBROMIDE 20 MG TAB PO SCH (09:29)
[2017-10-11] MEDS: VENLAFAXINE HCL XR 75 MG CAP PO SCH (09:29)
[2017-10-11] MEDS: DOCUSATE SODIUM 50 MG/SENNA 8.6 MG TAB PO SCH ×2 (09:29→20:19)
[2017-10-11] MEDS: FLUTICASONE PROPIONATE 50 MCG/ACT 16 GM NASAL SPRAY EACH NARE SCH (09:32)
[2017-10-11] MEDS: SODIUM CHLORIDE 0.9% FLUSH 10 ML FLUSH IV FLUSH SCH ×2 (09:34→20:19)
--- NOTE | 2017-10-11 09:34 | HHI.PR ---
Subjective Remarks Follow up for fall, left femur fracture s/p surgery, left humeral and radius fracture. The patient reports continued left hip pain. She states she can hardly sit up on side of the bed. Left shoulder/wrist pain fairly well controlled. She agrees to short term rehab placement. Denies any other medical complaints including no fevers/chills, lightheadedness, dizziness, chest pain, shortness of breath, or abdominal complaints. Vital signs reviewed and stable. Objective Vitals Vital Signs Date Time Temp Pulse Resp B/P (MAP) Pulse Ox O2 Delivery O2 Flow Rate FiO2 10/11/17 08:00 97.3 90 18 123/51 (75) 93 10/11/17 04:00 92 10/11/17 04:00 97.6 94 18 133/59 (83) 96 10/11/17 00:00 83 10/11/17 00:00 97.7 94 18 122/56 (78) 95 10/10/17 20:15 107 10/10/17 20:00 98.3 100 18 122/58 (79) 93 10/10/17 16:13 97.2 105 18 135/63 (87) 99 10/10/17 14:55 97.5 88 16 145/68 (93) 98 Nasal Cannula 2 10/10/17 14:45 87 16 142/65 (90) 97 Nasal Cannula 2 10/10/17 14:30 86 15 147/69 (95) 96 Nasal Cannula 2 10/10/17 14:15 87 15 150/70 (96) 96 Nasal Cannula 2 10/10/17 14:00 85 15 149/68 (95) 95 Nasal Cannula 2 10/10/17 13:45 80 15 141/63 (89) 95 Nasal Cannula 2 10/10/17 13:35 96.4 78 15 148/66 (93) 96 Nasal Cannula 2 10/10/17 11:30 97.8 87 18 128/58 (81) 95 I/O 10/10/17 10/10/17 10/10/17 10/11/17 10/11/17 10/11/17 07:00 15:00 23:00 07:00 15:00 23:00 Intake Total 0 ml 800 ml 340 ml 1320 ml Output Total 450 ml 350 ml 200 ml 350 ml Balance -450 ml 450 ml 140 ml 970 ml Intake Oral 0 ml 240 ml 220 ml IV Total 100 ml 1100 ml Other 800 ml Output Urine Total 450 ml 300 ml 200 ml 350 ml Estimated Blood Loss 50 ml # Bowel Movements 0 1 1 Result Diagram: 10/11/17 0604 10/11/17 0604 Imaging Last Impressions Femur X-Ray 10/10/17 0000 Signed Impressions: Service Date/Time: Tuesday, October 10, 2017 13:09 - CONCLUSION: 1. Left femoral ORIF, as above. Gt Ariza MD Hip and Pelvis X-Ray 10/09/17 1105 Signed Impressions: Service Date/Time: Monday, October 09, 2017 12:39 - CONCLUSION: Displaced comminuted fracture through the trochanteric region of the proximal left femur. Juan R Arana MD Chest X-Ray 10/09/17 1105 Signed Impressions: Service Date/Time: Monday, October 09, 2017 12:15 - CONCLUSION: 1. New impacted fracture through the neck of the proximal left humerus. 2. Stable chronic interstitial lung changes compare to 2015. No new or acute pulmonary infiltrates. Juan R Arana MD Wrist X-Ray 10/09/17 0000 Signed Impressions: Service Date/Time: Monday, October 09, 2017 13:58 - CONCLUSION: Near-anatomic alignment. Carlin Crain MD FACR Humerus X-Ray 10/09/17 0000 Signed Impressions: Service Date/Time: Monday, October 09, 2017 12:17 - CONCLUSION: Nondisplaced impacted fracture through the neck of the proximal left humerus. Juan R Arana MD Objective Remarks GENERAL: Well-nourished, well-developed pleasant elderly female patient in [facility]. SKIN: Warm and dry. No rash. HEENT: Normocephalic. Atraumatic. Pupils equal and round. Mucous membranes pink and moist. CARDIOVASCULAR: Regular rate and rhythm. No murmur appreciated. RESPIRATORY: No accessory muscle use. Clear to auscultation. Breath sounds equal bilaterally. GASTROINTESTINAL: Abdomen soft, non-tender, nondistended. Normoactive bowel sounds x4. MUSCULOSKELETAL: Left arm in short arm splint and sling. Left hip surgical dressing CDI. Extremities without clubbing, cyanosis, or edema. NEUROLOGICAL: Awake and alert. No obvious cranial nerve deficits. Motor grossly within normal limits. Moving all extremities spontaneously. Normal speech. PSYCHIATRIC: Appropriate mood and affect; insight and judgment normal. Procedures 10/10/17 - Reduction and intramedullary nail fixation left proximal femur by Dr. Lopez Medications and IVs Current Medications Medications (Trade) Dose Ordered Sig/Zena Route Start Time Stop Time Status Last Admin Sodium Chloride 1,000 ml @ 100 mls/hr Q10H IV 10/09/17 13:42 10/11/17 06:37 (NS Flush) 2 ml UNSCH PRN IV FLUSH 10/09/17 13:45 (NS Flush) 2 ml BID IV FLUSH 10/09/17 21:00 10/11/17 09:34 (Zofran Inj) 4 mg Q6H PRN IVP 10/09/17 13:45 (Porter 5-325 Mg) 1 tab Q4H PRN PO 10/09/17 13:45 10/11/17 05:00 ([place]orter 10-325 Mg) 1 tab Q4H PRN PO 10/09/17 13:45 10/10/17 15:56 (Narcan Inj) 0.4 mg UNSCH PRN IV PUSH 10/09/17 13:45 (Sarika-Colace) 1 tab BID PO 10/09/17 21:00 10/11/17 09:29 (Milk Of Magnesia Liq) 30 ml Q12H PRN PO 10/09/17 13:45 10/10/17 19:57 (CeleXA) 20 mg DAILY PO 10/10/17 09:00 10/11/17 09:29 (Flonase Chuck Spr) 1 spray DAILY EACH NARE 10/10/17 09:00 10/11/17 09:32 (Effexor Xr) 150 mg DAILY PO 10/10/17 09:00 10/11/17 09:29 Patient Own Medication PT OWN MED: ALA... Q6H PRN EACH EYE 10/09/17 16:45 Future Hold (Pravachol) 20 mg HS PO 10/09/17 21:00 10/10/17 19:57 (Lovenox Inj) 30 mg Q24H SQ 10/10/17 13:30 Cefazolin Sodium 1000 mg/Sodium Chloride 100 ml @ 200 mls/hr Q8H IV 10/10/17 21:00 10/11/17 13:29 10/11/17 05:00 (Oscal-D 250-125) 250 mg TID PO 10/10/17 18:00 10/11/17 09:00 (Benadryl) 25 mg Q6H PRN PO 10/10/17 13:30 10/10/17 22:57 (Morphine Inj) 3 mg Q3H PRN IV PUSH 10/10/17 13:30 (Vitamin D3) 5,000 units DAILY PO 10/11/17 09:00 10/11/17 09:28 A/P Problem List: (1) Fall ICD Code: W19.XXXA - Unspecified fall, initial encounter Status: Acute (2) Hip fracture ICD Code: S72.009A - Fracture of unspecified part of neck of unspecified femur , initial encounter for closed fracture Status: Acute (3) Contusion ICD Code: T14.8XXA - Other injury of unspecified body region, initial encounter Status: Acute (4) Rhabdomyolysis ICD Code: M62.82 - Rhabdomyolysis Assessment and Plan 86-year-old female with history of osteoporosis, hyperlipidemia, anxiety, depression, presents after a mechanical trip and fall at home. Left femur fracture: Secondary to fall -Left hip/femur/pelvis x-ray reviewed, shows displaced comminuted fracture through the trochanteric region of the proximal left femur -Pain control with [place] prn, IV morphine prn breakthrough pain -Vitamin D level 17, started on po replacement -Consulted ortho, s/p reduction and intramedullary nail fixation left proximal femur on 10/10 -DVT prophylaxis with Lovenox sq for now, with Xarelto 10mg daily [id number] upon discharge -Continue PT, needs rehab placement, patient lives alone Left Humerus Fracture, Left Radial Fracture: secondary to fall -Left wrist xray reviewed, shows Colles' fracture left wrist -Left humerus xray reviewed, shows nondisplaced impacted fracture through the neck of the proximal left humerus -Ortho consulted, recommended nonoperative management at this time -Continue splint/sling -Pain control as above Rhabdomyolysis: secondary to fall, patient on ground [id number] -CPK elevated at 1778, continue to trend -Give IVF hydration -Monitor renal function, improved with Cr 0.85 --> 0.42 -UA unremarkable, culture with no growth -CPK trended down to 636 today, will decrease IVF, can likely d/c fluids tomorrow am Hyperlipidemia: Chronic, stable -continue patient's statin Anxiety/depression: Chronic -Continue patient's citalopram and Effexor Anemia: Hgb dropped to 7.2 today s/p surgery yesterday, suspect secondary to blood loss and dilutional with IVF -repeat H&H this afternoon, transfuse if Hgb < 7 -monitor CBC DVT prophylaxis: Lovenox sq Discharge Planning Discussed with RN, case management. Patient needs rehab placement. Will likely medically clear tomorrow if Hgb stable and CPK continues to trend down. Problem Qualifiers (1) Fall: Qualified Codes: W19.XXXA - Unspecified fall, initial encounter (2) Hip fracture: Qualified Codes: S72.002A - Fracture of unspecified part of neck of left femur , initial encounter for closed fracture (3) Contusion: Qualified Codes: S40.022A - Contusion of left upper arm, initial encounter Jeniffer Moore PA-C October 11, 2017 9:34 am
[2017-10-11] MEDS: ACETAMINOPHEN/HYDROcodone 325 MG/10 MG TAB PO PRN (11:41)
[2017-10-11] MEDS: ENOXAPARIN SODIUM 30 MG/0.3 ML SYRINGE SQ SCH (14:29)
[2017-10-11 14:40] LABS: HEMOGLOBIN 7.2 GM/DL (11.6-15.3)
[2017-10-11] MEDS: PRAVASTATIN SOD 20 MG TAB PO SCH (20:18)
[2017-10-12] VITALS (12 sets, daily range): BP systolic 117–154; BP diastolic 55–96; PULSE 83–102; RESP 18–21; TEMP 97.2–98.3; O2SAT 93–100
[2017-10-12] MEDS: SODIUM CHLOR 0.9% 1000 ML INJ 1,000 ML IV SCH ×2 (04:56→20:17)
--- NOTE | 2017-10-12 06:34 | PD.ORT.PN ---
Subjective Subjective Remarks Resting comfortably with no new complaints. Confused Objective Vitals Vital Signs Date Time Temp Pulse Resp B/P (MAP) Pulse Ox O2 Delivery O2 Flow Rate FiO2 10/12/17 04:11 100 10/12/17 00:19 94 10/12/17 00:00 98.2 90 19 117/55 (75) 96 10/11/17 22:31 18 10/11/17 20:00 97.8 97 18 125/58 (80) 99 10/11/17 19:46 97 10/11/17 16:00 97.5 98 17 140/77 (98) 95 10/11/17 12:00 97.0 98 17 150/67 (94) 95 10/11/17 08:00 97.3 90 18 123/51 (75) 93 I/O 10/11/17 10/11/17 10/11/17 10/12/17 10/12/17 10/12/17 07:00 15:00 23:00 07:00 15:00 23:00 Intake Total 1320 ml 100 ml 480 ml 1000 ml Output Total 350 ml 1000 ml 400 ml Balance 970 ml 100 ml -520 ml 600 ml Intake Oral 220 ml 480 ml IV Total 1100 ml 100 ml 1000 ml Output Urine Total 350 ml 1000 ml 400 ml # Bowel Movements 1 1 1 Result Diagram: 10/11/17 1417 10/11/17 0604 Imaging Last 24 hours Impressions Hip and Pelvis X-Ray 10/09/17 1105 Signed Impressions: Service Date/Time: Monday, October 09, 2017 12:39 - CONCLUSION: Displaced comminuted fracture through the trochanteric region of the proximal left femur. Juan R Arana MD Femur X-Ray 10/09/17 1105 Signed Impressions: Service Date/Time: Monday, October 09, 2017 12:39 - CONCLUSION: Left intertrochanteric femoral neck fracture. Bharat Han MD Chest X-Ray 10/09/17 1105 Signed Impressions: Service Date/Time: Monday, October 09, 2017 12:15 - CONCLUSION: 1. New impacted fracture through the neck of the proximal left humerus. 2. Stable chronic interstitial lung changes compare to 2015. No new or acute pulmonary infiltrates. Juan R Arana MD Objective Remarks LUE: +sling and swathe. +short arm splint. intact. NVI LLE: Clean dry dressings intact distally intact sensation good capillary refills with active movement of ankle and toes Assessment & Plan Assessment and Plan 1) Left Intertroch Hip Fx IM nail POD 2 -Weightbearing as tolerated left lower extremity -Daily dressing changes beginning POD 2 -Ambulate with hemiwalker 2) Left Proximal Humerus Fx - nonop 3) Left Distal Radius Fx - nonop -maintain sling and short arm splint at all times -NWB -as long as maintains alignment, plan for nonop treatment of shoulder and wrist Case management for rehab placement Follow-up with Dr. Chong or PA in 2 weeks for repeat x-rays and examination Tommy Peter Jr. October 12, 2017 06:34
[2017-10-12 06:53] LABS: HEMATOCRIT 20.6 % (35.0-46.0); HEMOGLOBIN 6.9 GM/DL (11.6-15.3)
[2017-10-12] MEDS: FLUTICASONE PROPIONATE 50 MCG/ACT 16 GM NASAL SPRAY EACH NARE SCH (09:00)
[2017-10-12] MEDS: DOCUSATE SODIUM 50 MG/SENNA 8.6 MG TAB PO SCH ×2 (09:00→21:59)
[2017-10-12] MEDS: SODIUM CHLORIDE 0.9% FLUSH 10 ML FLUSH IV FLUSH SCH ×2 (09:00→21:00)
[2017-10-12] MEDS: VENLAFAXINE HCL XR 75 MG CAP PO SCH (09:06)
[2017-10-12] MEDS: CHOLECALCIFEROL (VIT D3) 5000 UNIT CAP PO SCH (09:06)
[2017-10-12] MEDS: CALCIUM/VITAMIN D 250 MG/125 U TAB PO SCH ×3 (09:07→18:00)
[2017-10-12] MEDS: CITALOPRAM HYDROBROMIDE 20 MG TAB PO SCH (09:07)
[2017-10-12] MEDS ORDERED: SODIUM CHLOR 0.9% 250 ML INJ 250 ML IV ONE (09:30)
--- NOTE | 2017-10-12 09:33 | HHI.PR ---
Subjective Remarks Patient states that she is not short of breath. She is not dizzy. She is complaining of some pain over the left hip area. She denies any abdominal pain. Objective Vitals Vital Signs Date Time Temp Pulse Resp B/P (MAP) Pulse Ox O2 Delivery O2 Flow Rate FiO2 10/12/17 08:04 98.3 87 18 137/65 (89) 98 10/12/17 04:11 100 10/12/17 00:19 94 10/12/17 00:00 98.2 90 19 117/55 (75) 96 10/11/17 22:31 18 10/11/17 20:00 97.8 97 18 125/58 (80) 99 10/11/17 19:46 97 10/11/17 16:00 97.5 98 17 140/77 (98) 95 10/11/17 12:00 97.0 98 17 150/67 (94) 95 I/O 10/11/17 10/11/17 10/11/17 10/12/17 10/12/17 10/12/17 07:00 15:00 23:00 07:00 15:00 23:00 Intake Total 1320 ml 100 ml 480 ml 1000 ml Output Total 350 ml 1000 ml 400 ml Balance 970 ml 100 ml -520 ml 600 ml Intake Oral 220 ml 480 ml IV Total 1100 ml 100 ml 1000 ml Output Urine Total 350 ml 1000 ml 400 ml # Bowel Movements 1 1 1 Result Diagram: 10/12/17 0523 10/11/17 0604 Other Results Item Value Date Time Total Creatine Kinase 543 U/L H 10/12/17 0523 Creatine Kinase MB 8.8 NG/ML H 10/12/17 0523 Objective Remarks GENERAL: This is a well-nourished, well-developed patient, in no apparent distress. CARDIOVASCULAR: Regular rate and rhythm RESPIRATORY: Relatively clear to auscultation. Breath sounds equal bilaterally. No wheezes, rales, or rhonchi. GASTROINTESTINAL: Abdomen soft, non-tender, nondistended. Normal active bowel sounds MUSCULOSKELETAL: Extremities without clubbing, cyanosis, or edema. Left upper extremity stabilized in the sling, left hand neurovascular intact was able to move. NEURO: Alert & Oriented x2 to person, place. Procedures 10/10/17 - Reduction and intramedullary nail fixation left proximal femur by Dr. Lopez A/P Problem List: (1) Fall ICD Code: W19.XXXA - Unspecified fall, initial encounter Status: Acute (2) Hip fracture ICD Code: S72.009A - Fracture of unspecified part of neck of unspecified femur , initial encounter for closed fracture Status: Acute (3) Contusion ICD Code: T14.8XXA - Other injury of unspecified body region, initial encounter Status: Acute (4) Rhabdomyolysis ICD Code: M62.82 - Rhabdomyolysis Status: Resolved Assessment and Plan 86-year-old female with history of osteoporosis, hyperlipidemia, anxiety, depression, presents after a mechanical trip and fall at home. Left femur fracture with underlying osteoporosis: Secondary to fall -status post op day #2 left proximal femur reduction intramedullary nail fixation -Pain control with [place] prn, IV morphine prn breakthrough pain -Vitamin D level 17, started on po replacement -Consulted ortho, s/p reduction and intramedullary nail fixation left proximal femur on 10/10 -DVT prophylaxis with Lovenox sq for now, with Xarelto 10mg daily x 14days upon discharge -Continue physical therapy, patient lives alone and will need rehab Left Humerus Fracture, Left Radial Fracture: secondary to fall -Left wrist xray shows Colles' fracture left wrist -Left humerus xray shows nondisplaced impacted fracture through the neck of the proximal left humerus -Ortho recommended nonoperative management at this time -Continue splint/sling -Pain control as above Rhabdomyolysis, traumatic: secondary to fall, patient on ground [id number], now resolved. -CPK elevated at 1778, continue to trend down with today's CPK at 543 with IV fluid hydration -Monitor renal function, improved -UA unremarkable, culture with no growth - Hyperlipidemia: Chronic, stable -continue patient's statin Anxiety/depression: Chronic -Continue patient's citalopram and Effexor Post operative anemia due to blood loss from surgery: Hgb dropped to 6.9 today , suspect secondary to blood loss and dilutional with IVF, transfuse 2 units of packed red blood cell today. Urinary retention with 2 episodes of straight cath this morning with bladder scan of 400, will monitor closely and repeat bladder scan if no void in the next 8 hours. DVT prophylaxis: Lovenox sq Discharge Planning Will need retirement facility. Problem Qualifiers (1) Fall: Qualified Codes: W19.XXXA - Unspecified fall, initial encounter (2) Hip fracture: Qualified Codes: S72.002A - Fracture of unspecified part of neck of left femur , initial encounter for closed fracture (3) Contusion: Qualified Codes: S40.022A - Contusion of left upper arm, initial encounter (4) Rhabdomyolysis: Qualified Codes: T79.6XXA - Traumatic ischemia of muscle, initial encounter Charley Davis MD October 12, 2017 09:33
--- NOTE | 2017-10-12 11:13 | PQ ---
Physician Query Response Document PATIENT: TRAVIS CORDOBA : 1930 ADMIT DATE: 10/09/2017 1:43 PM DISCH DATE: RESPONDING PROVIDER #: [email or web address] QUERY TEXT: CDS Clarification Acute posthemorrhagic anemia in the setting of H Other explanation of clinical findings. Unable to determine (no explanation for clinical findings). The patient's Clinical Indicators include: The medical record reflects the following clinical findings, treatment, and risk factors. * Clinical Indicators: H * Risk Factors: Fall, s/p IM nail left femur * Treatment: Transfusions, IV fluids, lab monitoring Please clarify and document your clinical opinion in the progress notes and discharge summary includi ng the definitive and/or presumptive diagnosis (suspected or probable), related to the above clinical findings. Please include clinical findings supporting your diagnosis. Thank you, Travis Quiroz : CDS/RN ext. [phone] Query created by: Travis Quiroz on 10/12/2017 10:53 AM RESPONSE TEXT: Acute anemia due to blood loss from surgery. Electronically signed by: Elise Davis MD (Ginny) 10/12/2017 11:09 AM
[2017-10-12] MEDS: ENOXAPARIN SODIUM 30 MG/0.3 ML SYRINGE SQ SCH (15:11)
[2017-10-12] MEDS: PRAVASTATIN SOD 20 MG TAB PO SCH (22:01)
[2017-10-13] VITALS (7 sets, daily range): BP systolic 136–164; BP diastolic 58–71; PULSE 75–88; RESP 16–21; TEMP 97.2–98.7; O2SAT 94–99
--- NOTE | 2017-10-13 07:02 | PD.ORT.PN ---
Subjective Subjective Remarks POD 3 s/p IMN left hip s/p left proximal humerus fx s/p left wrist fx doing well. pain controlled. slightly confused at bedside Objective Vitals Vital Signs Date Time Temp Pulse Resp B/P (MAP) Pulse Ox O2 Delivery O2 Flow Rate FiO2 10/13/17 04:00 98.7 82 21 136/69 (91) 96 10/13/17 03:55 98.7 82 21 136/69 96 10/13/17 00:18 98.1 82 21 164/71 99 10/13/17 00:00 97.2 83 21 148/67 (94) 98 10/12/17 23:52 97.2 83 21 154/65 98 10/12/17 20:00 97.8 88 20 123/79 (94) 100 10/12/17 19:40 98.1 91 18 144/68 98 10/12/17 16:24 93 21 10/12/17 15:48 97.8 102 18 123/96 93 10/12/17 15:34 98.3 96 19 146/65 (92) 96 10/12/17 15:33 98.3 96 19 146/65 96 10/12/17 11:38 97.9 92 18 136/72 (93) 94 10/12/17 08:04 98.3 87 18 137/65 (89) 98 I/O 10/12/17 10/12/17 10/12/17 10/13/17 10/13/17 10/13/17 07:00 15:00 23:00 07:00 15:00 23:00 Intake Total 1000 ml 402 ml 1550 ml Output Total 400 ml 800 ml Balance 600 ml -398 ml 1550 ml Intake Oral 100 ml IV Total 1000 ml 1050 ml Packed Cells 400 ml 400 ml Blood Product IV Normal Saline Flush 2 ml Output Urine Total 400 ml 800 ml # Voids 6 # Bowel Movements 1 3 Result Diagram: 10/12/17 0523 10/11/17 0604 Imaging Last 24 hours Impressions Hip and Pelvis X-Ray 10/09/17 1105 Signed Impressions: Service Date/Time: Monday, October 09, 2017 12:39 - CONCLUSION: Displaced comminuted fracture through the trochanteric region of the proximal left femur. Juan R Arana MD Femur X-Ray 10/09/17 1105 Signed Impressions: Service Date/Time: Monday, October 09, 2017 12:39 - CONCLUSION: Left intertrochanteric femoral neck fracture. Bharat Han MD Chest X-Ray 10/09/17 1105 Signed Impressions: Service Date/Time: Monday, October 09, 2017 12:15 - CONCLUSION: 1. New impacted fracture through the neck of the proximal left humerus. 2. Stable chronic interstitial lung changes compare to 2015. No new or acute pulmonary infiltrates. Juan R Arana MD Objective Remarks LUE: +sling and swathe. +short arm splint. intact. NVI LLE: Clean dry dressings intact distally intact sensation good capillary refills with active movement of ankle and toes Assessment & Plan Assessment and Plan 1) Left Intertroch Hip Fx IM nail POD 3 -Weightbearing as tolerated left lower extremity -Daily dressing changes -Ambulate with hemiwalker 2) Left Proximal Humerus Fx - nonop 3) Left Distal Radius Fx - nonop -maintain sling and short arm splint at all times -NWB -as long as maintains alignment, plan for nonop treatment of shoulder and wrist Case management for rehab placement Follow-up with Dr. Chong or PA in 2 weeks for repeat x-rays and examination Cristiano Grady/First Pier[facility] PATRICIA October 13, 2017 07:02
[2017-10-13] MEDS ORDERED: WHEEMIS3 (07:03)
[2017-10-13] MEDS ORDERED: WALKER/FOLDING1 MIS (07:03)
[2017-10-13] MEDS: VENLAFAXINE HCL XR 75 MG CAP PO SCH (08:06)
[2017-10-13] MEDS: CHOLECALCIFEROL (VIT D3) 5000 UNIT CAP PO SCH (08:06)
[2017-10-13] MEDS: CALCIUM/VITAMIN D 250 MG/125 U TAB PO SCH ×2 (08:06→12:45)
[2017-10-13] MEDS: CITALOPRAM HYDROBROMIDE 20 MG TAB PO SCH (08:06)
[2017-10-13] MEDS: DOCUSATE SODIUM 50 MG/SENNA 8.6 MG TAB PO SCH (08:07)
[2017-10-13] MEDS: FLUTICASONE PROPIONATE 50 MCG/ACT 16 GM NASAL SPRAY EACH NARE SCH (08:07)
[2017-10-13] MEDS: SODIUM CHLORIDE 0.9% FLUSH 10 ML FLUSH IV FLUSH SCH (08:07)
[2017-10-13 09:41] LABS: ALBUMIN 2.2 GM/DL (3.4-5.0); DIRECT BILIRUBIN ADULT 0.5 MG/DL (0.0-0.2); TOTAL BILIRUBIN ADULT 1.5 MG/DL (0.2-1.0); TOTAL PROTEIN 5.1 GM/DL (6.4-8.2)
--- NOTE | 2017-10-13 09:44 | HHI.PR ---
Subjective Remarks Confused. Thought she was at her home and wondering why the furniture looks different. Denies any pain. Objective Vitals Vital Signs Date Time Temp Pulse Resp B/P (MAP) Pulse Ox O2 Delivery O2 Flow Rate FiO2 10/13/17 08:00 97.8 79 16 141/58 (85) 94 10/13/17 04:00 98.7 82 21 136/69 (91) 96 10/13/17 04:00 82 10/13/17 03:55 98.7 82 21 136/69 96 10/13/17 00:18 98.1 82 21 164/71 99 10/13/17 00:00 97.2 83 21 148/67 (94) 98 10/13/17 00:00 75 10/12/17 23:52 97.2 83 21 154/65 98 10/12/17 20:00 97.8 88 20 123/79 (94) 100 10/12/17 19:40 98.1 91 18 144/68 98 10/12/17 16:24 93 21 10/12/17 15:48 97.8 102 18 123/96 93 10/12/17 15:34 98.3 96 19 146/65 (92) 96 10/12/17 15:33 98.3 96 19 146/65 96 10/12/17 11:38 97.9 92 18 136/72 (93) 94 I/O 10/12/17 10/12/17 10/12/17 10/13/17 10/13/17 10/13/17 07:00 15:00 23:00 07:00 15:00 23:00 Intake Total 1000 ml 402 ml 1550 ml Output Total 400 ml 800 ml Balance 600 ml -398 ml 1550 ml Intake Oral 100 ml IV Total 1000 ml 1050 ml Packed Cells 400 ml 400 ml Blood Product IV Normal Saline Flush 2 ml Output Urine Total 400 ml 800 ml # Voids 6 # Bowel Movements 1 3 Result Diagram: 10/13/17 0824 10/11/17 0604 Objective Remarks GENERAL: This is a well-nourished, well-developed patient, in no apparent distress. CARDIOVASCULAR: Regular rate and rhythm RESPIRATORY: Relatively clear to auscultation. Breath sounds equal bilaterally. No wheezes, rales, or rhonchi. GASTROINTESTINAL: Abdomen soft, non-tender, nondistended. Normal active bowel sounds MUSCULOSKELETAL: Extremities without clubbing, cyanosis, or edema. Left upper extremity stabilized in the sling, left hand neurovascular intact was able to move. left lower hip bandage C/D/I NEURO: Alert & Oriented x1 to person. not oriented to place Procedures 10/10/17 - Reduction and intramedullary nail fixation left proximal femur by Dr. Lopez A/P Problem List: (1) Fall ICD Code: W19.XXXA - Unspecified fall, initial encounter Status: Acute (2) Hip fracture ICD Code: S72.009A - Fracture of unspecified part of neck of unspecified femur , initial encounter for closed fracture Status: Acute (3) Contusion ICD Code: T14.8XXA - Other injury of unspecified body region, initial encounter Status: Acute (4) Rhabdomyolysis ICD Code: M62.82 - Rhabdomyolysis Status: Resolved Assessment and Plan 86-year-old female with history of osteoporosis, hyperlipidemia, anxiety, depression, presents after a mechanical trip and fall at home. Left femur fracture with underlying osteoporosis: Secondary to fall -status post op day #3 left proximal femur reduction intramedullary nail fixation -Pain control with [place] prn, IV morphine prn breakthrough pain -Vitamin D level 17, started on po replacement -Consulted ortho, s/p reduction and intramedullary nail fixation left proximal femur on 10/10 -DVT prophylaxis with Lovenox sq for now, with Xarelto 10mg daily x 14days upon discharge -Continue physical therapy, patient lives alone and will need rehab Left Humerus Fracture, Left Radial Fracture: secondary to fall -Left wrist xray shows Colles' fracture left wrist -Left humerus xray shows nondisplaced impacted fracture through the neck of the proximal left humerus -Ortho recommended nonoperative management at this time -Continue splint/sling -Pain control as above Rhabdomyolysis, traumatic: secondary to fall, patient on ground x 14 hours, now resolved. -CPK initially elevated at 1778, trended down with CPK at 543 with IV fluid hydration -Monitor renal function, improved -UA unremarkable, culture with no growth Hyperlipidemia: Chronic, stable -continue patient's statin Anxiety/depression: Chronic -Continue patient's citalopram and Effexor Post operative acute anemia due to blood loss from surgery: Hgb dropped to 6.9 yesterday, suspect secondary to blood loss s/p transfuse 2 units of packed red blood cell yesterday with repeat Hb 10.8 Urinary retention - resolved - voiding Delirium, transient - reorient DVT prophylaxis: Lovenox Discharge Planning D/C to group home facility. Problem Qualifiers (1) Fall: Qualified Codes: W19.XXXA - Unspecified fall, initial encounter (2) Hip fracture: Qualified Codes: S72.002A - Fracture of unspecified part of neck of left femur , initial encounter for closed fracture (3) Contusion: Qualified Codes: S40.022A - Contusion of left upper arm, initial encounter (4) Rhabdomyolysis: Qualified Codes: T79.6XXA - Traumatic ischemia of muscle, initial encounter Charley Davis MD October 13, 2017 09:44
--- NOTE | 2017-10-13 09:54 | HHI.DS ---
Discharge Summary Admission Date October 09, 2017 at 13:43 Discharge Date: October 13, 2017 Admitting Diagnosis L Hip Fracture; L Distal Radius Fracture; Rhabdo (1) Fall ICD Code: W19.XXXA - Unspecified fall, initial encounter Status: Acute (2) Hip fracture ICD Code: S72.009A - Fracture of unspecified part of neck of unspecified femur , initial encounter for closed fracture Status: Acute (3) Fracture of left distal radius ICD Code: S52.502A - Unspecified fracture of the lower end of left radius, initial encounter for closed fracture Status: Acute (4) Fracture of humerus, proximal, left, closed ICD Code: S42.202A - Unspecified fracture of upper end of left humerus, initial encounter for closed fracture Diagnosis: Principal Status: Acute (5) Contusion ICD Code: T14.8XXA - Other injury of unspecified body region, initial encounter Status: Resolved (6) Rhabdomyolysis ICD Code: M62.82 - Rhabdomyolysis Diagnosis: Secondary Status: Resolved Procedures 10/10/17 - Reduction and intramedullary nail fixation left proximal femur by Dr. Chong Brief History - From Admission Obtain from patient's history and physical. Mrs. Liz is an 86-year-old female. 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 After this point she had a fall and struck her left wrist and hit her left hip when she landed. She has fractures at her left radius and left femur. She was unable to have anybody come help her up and was down for some time. She is also dehydrated with rhabdomyolysis and she may have been on the floor for about 12 hours. No other complaints at this time. She did not strike her head. CBC/BMP: 10/13/17 0824 10/11/17 0604 Significant Findings Laboratory Tests Test 10/11/17 06:04 10/11/17 14:17 10/12/17 05:23 10/13/17 08:24 Red Blood Count 2.29 MIL/MM3 (4.00-5.30) Hemoglobin 7.2 GM/DL (11.6-15.3) 7.2 GM/DL (11.6-15.3) 6.9 GM/DL (11.6-15.3) 10.8 GM/DL (11.6-15.3) Hematocrit 21.4 % (35.0-46.0) 21.0 % (35.0-46.0) 20.6 % (35.0-46.0) Platelet Count 144 TH/MM3 (150-450) Neutrophils (%) (Auto) 75.0 % (16.0-70.0) Monocytes (%) (Auto) 12.7 % (0.0-8.0) Monocytes # (Auto) 1.2 TH/MM3 (0-0.9) Blood Urea Nitrogen 22 MG/DL (7-18) Creatinine 0.42 MG/DL (0.50-1.00) Calcium Level 7.7 MG/DL (8.5-10.1) Chloride Level 108 MEQ/L (98-107) Total Creatine Kinase 636 U/L (26-192) 543 U/L (26-192) Creatine Kinase MB 7.9 NG/ML (0.5-3.6) 8.8 NG/ML (0.5-3.6) Total Bilirubin 1.5 MG/DL (0.2-1.0) Direct Bilirubin 0.5 MG/DL (0.0-0.2) Indirect Bilirubin 1.0 MG/DL (0.0-0.8) Total Protein 5.1 GM/DL (6.4-8.2) Albumin 2.2 GM/DL (3.4-5.0) Imaging Last Impressions Femur X-Ray 10/10/17 0000 Signed Impressions: Service Date/Time: Tuesday, October 10, 2017 13:09 - CONCLUSION: 1. Left femoral ORIF, as above. Gt Ariza MD Hip and Pelvis X-Ray 10/09/17 1105 Signed Impressions: Service Date/Time: Monday, October 09, 2017 12:39 - CONCLUSION: Displaced comminuted fracture through the trochanteric region of the proximal left femur. Juan R Arana MD Chest X-Ray 10/09/17 1105 Signed Impressions: Service Date/Time: Monday, October 09, 2017 12:15 - CONCLUSION: 1. New impacted fracture through the neck of the proximal left humerus. 2. Stable chronic interstitial lung changes compare to 2015. No new or acute pulmonary infiltrates. Juan R Arana MD Wrist X-Ray 10/09/17 0000 Signed Impressions: Service Date/Time: Monday, October 09, 2017 13:58 - CONCLUSION: Near-anatomic alignment. Carlin Crain MD FACR Humerus X-Ray 10/09/17 0000 Signed Impressions: Service Date/Time: Monday, October 09, 2017 12:17 - CONCLUSION: Nondisplaced impacted fracture through the neck of the proximal left humerus. Juan R Arana MD PE at Discharge GENERAL: This is a well-nourished, well-developed patient, in no apparent distress. CARDIOVASCULAR: Regular rate and rhythm RESPIRATORY: Relatively clear to auscultation. Breath sounds equal bilaterally. No wheezes, rales, or rhonchi. GASTROINTESTINAL: Abdomen soft, non-tender, nondistended. Normal active bowel sounds MUSCULOSKELETAL: Extremities without clubbing, cyanosis, or edema. Left upper extremity stabilized in the sling, left hand neurovascular intact was able to move. left lower hip bandage C/D/I NEURO: Alert & Oriented x1 to person. not oriented to place Hospital Course These are the medical issues addressed during this hospitalization: Left femur fracture with underlying osteoporosis: Secondary to fall and completed a left proximal femur reduction intramedullary nail fixation on 10/10 Pain was controlled with Edison as needed with IV morphine as needed for pain. She was given vitamin D and calcium supplement. DVT prophylaxis with Lovenox with transition to Xarelto as outpatient. Postoperative care provided with continue physical therapy. In addition, patient had transient delirium due to surgery and medication. Which reorientation was done during hospitalization. Left Humerus Fracture, Left Radial Fracture: secondary to fall -Left wrist xray shows Colles' fracture left wrist -Left humerus xray shows nondisplaced impacted fracture through the neck of the proximal left humerus -Ortho recommended nonoperative management at this time -Continue splint/sling -Pain control as above Rhabdomyolysis, traumatic: secondary to fall, patient on ground x 14 hours, now resolved. -CPK initially elevated at 1778, trended down with CPK at 543 with IV fluid hydration -Monitor renal function, improved -UA unremarkable, culture with no growth Hyperlipidemia: Chronic, stable -continue patient's statin Anxiety/depression: Chronic -Continue patient's citalopram and Effexor Post operative acute anemia due to blood loss from surgery: Hgb dropped to 6.9 during hospitalization, s/p transfuse 2 units of packed red blood cell yesterday with repeat Hb 10.8 Urinary retention - resolved with Bolden removed and now prior to discharge. Voiding At this time, patient has gained maximum benefit from hospitalization and ready for [facility] to [facility]. Pt Condition on Discharge: Good Discharge Disposition: Discharge to SNF Discharge Time: <= 30 minutes Discharge Instructions DIET: Follow Instructions for: Heart Healthy Diet Activities you can perform: Regular-No Restrictions Follow up Referrals: Orthopedics - 2 Weeks @ [facility] with Lorenzo Chong MD New Medications: Calcium Carbonate-Vitamin D (Calcium 600+D 200) 600-200 Mg-Unit Tab 1 TAB PO BID for Nutritional Supplement, #60 TAB 0 Refills Cholecalciferol (Vitamin D3) 2,000 Unit Cap 2000 UNITS PO DAILY for Nutritional Supplement, #60 CAP 0 Refills Ergocalciferol (Ergocalciferol) 50,000 Unit Cap 96186 UNITS PO Q7D for Nutritional Supplement, #8 CAP Hydrocodone-Acetaminophen (Hydrocodone-Acetaminophen) 7.5 Mg-325 Mg Tab 1 TAB PO Q4H PRN for PAIN, #60 TAB 0 Refills Rivaroxaban (Xarelto) 10 Mg Tab 10 MG PO DAILY for Blood Clot Prevention for 14 Days, #14 TAB 0 Refills Walker/Folding Yomi (Walker/Folding Yomi) 1 Mis Mis EA .XX DIRECTED, #1 Wheelchair (Wheelchair) 1 Mis Mis EA .XX DIRECTED, #1 0 Refills Continued Medications: Calcium Carbonate-Vitamin D (Calcium 600+D 200) 600-200 Mg-Unit Tab 1 TAB PO DAILY for Nutritional Supplement, TAB 0 Refills Citalopram (Citalopram) 20 Mg Tab 20 MG PO DAILY for Control Depression, #30 TAB 0 Refills Fluticasone Nasal [place] (Fluticasone Nasal [place]) 50 Mcg/Act Naspr 1 SPRAY EACH NARE DAILY for Allergy Management, #1 BOTTLE 0 Refills 50 mcg/spray Ibuprofen (Ibuprofen) 200 Mg Cap 200-400 MG PO Q6H PRN for MILD PAIN, CAP 0 Refills Ketotifen Opth Drops ([place] Opth Drops) 0.025% Drops 1 DROP EACH EYE Q6H PRN for DRY EYE, #10 ML Probiotic Product (Probiotic Daily) Unknown Strength Cap 1 CAP PO DAILY for Nutritional Supplement Simvastatin (Zocor) 10 Mg Tab 10 MG PO HS for Cholesterol Management, #30 TAB 0 Refills Venlafaxine ER 24 HR (Effexor XR 24 HR) 150 Mg Cap 150 MG PO DAILY, #30 CAP 0 Refills Vit C/E/Zn/Coppr/Lutein/Zeaxan (Preservision Areds 2 Softgel) 250-200-40 Capsule 1 CAP PO BID for Nutritional Supplement Discontinued Medications: Aspirin (Aspirin Adult Low Strength) 81 Mg Tabdr 81 MG PO DAILY, TAB Charley Davis MD October 13, 2017 09:54
[2017-10-13] MEDS: SODIUM CHLOR 0.9% 1000 ML INJ 1,000 ML IV SCH (10:35)
[2017-10-13] MEDS: ENOXAPARIN SODIUM 30 MG/0.3 ML SYRINGE SQ SCH (12:45)
== END 2017-10-13 17:34 | DRG 481 ==
LOC: NEPC 10:26 → NEDA 13:43 → N06B 17:32 → N06A 10-12 18:30
PROVIDERS: ADMIT Internal Medicine; ATTEND Internal Medicine
PROC: 0PSJXZZ Reposition Left Radius, External Approach (ICD-10-PCS; 2017-10-09)
PROC: 2W3BXYZ Immobilization of Left Upper Arm using Other Device (ICD-10-PCS; 2017-10-09)
PROC: 0QS736Z Reposition Left Upper Femur with Intramedullary Internal Fixation Device, Percutaneous Approach (ICD-10-PCS; principal; 2017-10-10 12:21)
DX: S72.142A Displaced intertrochanteric fracture of left femur, initial encounter for closed fracture (principal); M62.82 Rhabdomyolysis; D62 Acute posthemorrhagic anemia; S52.532A Colles' fracture of left radius, initial encounter for closed fracture; S42.202A Unspecified fracture of upper end of left humerus, initial encounter for closed fracture; M81.0 Age-related osteoporosis without current pathological fracture; S40.022A Contusion of left upper arm, initial encounter; F41.8 Other specified anxiety disorders; W01.0XXA Fall on same level from slipping, tripping and stumbling without subsequent striking against object, initial encounter; R33.9 Retention of urine, unspecified; E78.5 Hyperlipidemia, unspecified; Y92.009 Unspecified place in unspecified non-institutional (private) residence as the place of occurrence of the external cause; Z90.710 Acquired absence of both cervix and uterus; Z96.1 Presence of intraocular lens; Z86.19 Personal history of other infectious and parasitic diseases; Z79.82 Long term (current) use of aspirin
CPT/HCPCS: 25605; 36430; 71045; 73060; 73100; 73110; 73502; 73552; 76000; 80048; 80053; 80076; 81001; 82306; 82550; 82552; 85014; 85018; 85025; 85610; 85730; 86850; 86900; 86901; 86920; 87086; 93005; 94150; 96374; 96375; 99152; 99153; C1713; J0131; J0690; J1100; J1580; J1650; J2270; J2405; J3010; J3370; J7030; J7050; P9016